=== PATIENT | female | born 1955 | race African-American/Black ===

== ENCOUNTER 2016-10-22 23:00 | Inpatient (IN) | payer SELFPAY ==
[~2016-10-22] VITALS: Ht 170.2 cm; Wt 68.9 kg
[2016-10-22] MEDS ORDERED: ADENOSINE IV SOLN 3 MG/ML 2 ML VIAL ONE (23:03)
[2016-10-22] MEDS ORDERED: ETOMIDATE 20 MG/10 ML VIAL ONE (23:07)
[2016-10-22] MEDS ORDERED: SUCCINYLCHOLINE CHLORIDE 200 MG/10 ML VIAL ONE ×2 (23:13→23:14)
[2016-10-22 23:17] VITALS: O2SAT 100
[2016-10-22 23:21] VITALS: PULSE 200; RESP 35
[2016-10-22] MEDS ORDERED: PROPOFOL 1000 MG/100 ML INJ 100 ML ONE (23:27)
[2016-10-22] MEDS ORDERED: DILTIAZEM HCL 25 MG/5 ML VIAL ONE (23:28)
[2016-10-22] MEDS ORDERED: DILTIAZEM 125 MG/NS 100 ML IV SCH ×2 (23:45)
[2016-10-23] VITALS (24 sets, daily range): BP systolic 87–150; BP diastolic 59–100; PULSE 76–127; RESP 16–28; TEMP 97.8–100.6; O2SAT 94–100
[2016-10-23] MEDS ORDERED: ETOMIDATE 20 MG/10 ML VIAL IV PUSH ONE ×2
[2016-10-23] MEDS ORDERED: ASPIRIN 300 MG SUPP RECTAL ONE
[2016-10-23] MEDS ORDERED: SODIUM CHLORIDE 0.9% FLUSH 10 ML FLUSH IVF PRN
[2016-10-23] MEDS ORDERED: SUCCINYLCHOLINE CHLORIDE 200 MG/10 ML VIAL IV PUSH ONE
[2016-10-23] MEDS ORDERED: DILTIAZEM HCL 25 MG/5 ML VIAL IV ONE
[2016-10-23] MEDS ORDERED: HYDROmorphone HCL PF 1 MG/ML VIAL IV PUSH ONE (00:15)
[2016-10-23 00:26] LABS: BASOPHIL # 0.1 TH/MM3 (0-0.2); BASOPHIL % 0.5 % (0.0-2.0); EOSINOPHIL # 0.2 TH/MM3 (0-0.4); EOSINOPHIL % 1.5 % (0.0-4.0); HEMATOCRIT 43.9 % (35.0-46.0); LYMPH % 37.7 % (9.0-44.0); LYMPHOCYTE # 6.3 TH/MM3 (1.0-4.8); MEAN CELL VOLUME 89.5 FL (80.0-100.0); MEAN CORPUSCULAR HEMOGLOBIN 28.2 PG (27.0-34.0); MEAN CORPUSCULAR HGB CONC 31.5 % (32.0-36.0); MONO % 6.8 % (0.0-8.0); NEUT % 53.5 % (16.0-70.0); PLATELET COUNT 189 TH/MM3 (150-450); WHITE BLOOD COUNT 16.8 TH/MM3 (4.0-11.0)
[2016-10-23] MEDS: DILTIAZEM INJ 125 MG in SODIUM CHLORIDE 0.9% INJ 100 ML IV SCH (00:26)
[2016-10-23 00:35] LABS: HEMO FLAGS AUTO DIFF
[2016-10-23 00:42] LABS: APTT (PATIENT) 22.6 SEC (24.3-30.1); PROTHROMBIN TIME - PATIENT 10.7 SEC (9.8-11.6)
[2016-10-23 00:48] LABS: BLOOD GAS BASE EXCESS -6.7 mmol/L (-2-2); BLOOD GAS CARBOXYHEMOGLOBIN 1.1 % (0-4); BLOOD GAS HCO3 19 mmol/L (22-26); BLOOD GAS METHEMOGLOBIN 0.7 % (0-2); BLOOD GAS O2 HGB SATURATION 93 % (90-100); BLOOD GAS OXYGEN CONTENT 16.4 Vol % (12.0-20.0); BLOOD GAS PCO2 40 mmHg (38-42); BLOOD GAS PO2 82 mmHG (61-120); BLOOD GAS TOTAL HGB 12.5 G/DL (12.0-16.0); CRITICAL VALUE YES; TEMP CORR TO 98.6
[2016-10-23 00:49] LABS: DRAW SITE ALINE; FIO2 60 %; OXYGEN DEVICE VENTILATOR; STAT YES; VENT SETTINGS AC/16/500/PEEP10
[2016-10-23 00:56] LABS: ALT (GPT) 57 U/L (10-53); ANION GAP 19 MEQ/L (5-15); AST (GOT) 40 U/L (15-37); BICARBONATE 17.2 MEQ/L (21.0-32.0); BLOOD UREA NITROGEN 16 MG/DL (7-18); CHLORIDE 112 MEQ/L (98-107); GLOMERULAR FILTRATION RATE 44 ML/MIN (>89); MAGNESIUM 2.2 MG/DL (1.5-2.5); POTASSIUM 3.3 MEQ/L (3.5-5.1); SODIUM (NA) 148 MEQ/L (136-145)
[2016-10-23 01:00] LABS: ALKALINE PHOSPHATASE 160 U/L (45-117); TOTAL BILIRUBIN ADULT 0.3 MG/DL (0.2-1.0)
--- NOTE | 2016-10-23 02:13 | RADRPT ---
EXAM DATE/TIME: 10/23/2016 01:08 [place] COMPARISON: No previous studies available for comparison. INDICATIONS : Post intubation. Cardiac arrest. MEDICAL HISTORY : Emphysema. SURGICAL HISTORY : None. ENCOUNTER: Initial ACUITY: 1 day PAIN SCORE: Non-responsive. LOCATION: Bilateral chest FINDINGS: A single view of the chest demonstrates endotracheal tube tip 6.2 cm above the rasta. Nasogastric tu be with tip below the inferior margin image. Right perihilar/right lower lobe infiltrate. Heart enlar ged.. Osseous structures are intact. CONCLUSION: 1. Right perihilar/right lower lobe infiltrate. 2. Endotracheal tube 6.2 cm above the rasta. Johnie Key MD on October 23, 2016 at 1:34 Board Certified Radiologist. This report was verified electronically.
[2016-10-23 02:36] LABS: BACTERIA, URINE RARE /hpf; BLOOD, URINE MOD (NEG); GLUCOSE,URINE 150 mg/dL (NEG); GRANULAR CAST, URINE 1 /lpf; HYALINE CAST, URINE 9 /lpf (RARE); KETONE, URINE NEG (NEG); NITRITE,URINE NEG (NEG); PH, URINE 6.5 (5.0-8.5); RENAL EPITHELIAL CELLS <1 /hpf; SQUAMOUS EPITHELIAL CELL URINE 1 /hpf (0-5); TRANSITIONAL EPI CELLS, URINE <1 /hpf; URINE COLOR YELLOW (YELLW/STRAW)
[2016-10-23 02:37] LABS: COMMENT (UR) CATH-CULTURE IND; CULTURE IF INDICATED CATH CULTURE IND
[2016-10-23] MEDS ORDERED: CEFEPIME 2000 MG/NS 100 ML IV ONE ×2 (02:45)
[2016-10-23] MEDS ORDERED: VANCOMYCIN 1,000 MG/NS 250 ML IV ONE ×2 (02:45)
[2016-10-23] MEDS ORDERED: AZITHROMYCIN 500 MG/NS 250 ML IV ONE ×2 (02:45)
[2016-10-23] MEDS ORDERED: FUROSEMIDE 40 MG/4 ML VIAL IV PUSH ONE (03:00)
--- NOTE | 2016-10-23 03:21 | PD ---
HPI Chief Complaint: Respiratory Distress Time Seen by Provider: 23:58 Travel History International Travel<30 days: No Contact w/Intl Traveler<30days: No Traveled to known affect area: No History of Present Illness HPI This is a 61-year-old female who presents to the emergency department reporting that she needs help and that she feels like she is going to . She is able to say that she has a history of COPD and that her chest hurts her and she feels short of breath but otherwise she provides very little history. PFSH Past Medical History Medical History: Unable to Obtain ?: Unknown Social History Tobacco Use: Yes Allergies-Medications (Allergen,Severity, Reaction): Coded Allergies: Codeine (Verified Allergy, Unknown, 10/23/16) Doxycycline (Verified Allergy, Unknown, 10/23/16) Morphine (Verified Allergy, Unknown, 10/23/16) Reported Meds & Prescriptions Reported Meds & Active Scripts Active Active Prescriptions or Reported Medications Unobtainable Review of Systems ROS Limitations: Clinical Condition Physical Exam Narrative GENERAL:in extremis, diaphoretic, tripoding SKIN: Diaphoretic HEAD: Atraumatic. Normocephalic. EYES: Pupils equal and round. No injection or drainage. ENT: Moist mucous membranes NECK: Trachea midline. CARDIOVASCULAR: Tachycardic No murmur appreciated. RESPIRATORY: Rales, accessory muscle use, speaking in 2 word sentences GASTROINTESTINAL: Abdomen soft, non-tender, nondistended. MUSCULOSKELETAL: No obvious deformities. NEUROLOGICAL: Awake and alert. No obvious cranial nerve deficits. Moving all extremities. PSYCHIATRIC: Anxious appearing. Data Data Last Documented VS Vital Signs Date Time Temp Pulse Resp B/P Pulse Ox O2 Delivery O2 Flow Rate FiO2 10/23/16 00:58 86 16 116/65 100 Ventilator 60 10/22/16 23:00 2 Orders Adenosine Inj (Adenocard Inj) (10/22/16 23:03) Etomidate Inj (Amidate Inj) (10/22/16 23:07) Succinylcholine Inj (Quelicin Inj) (10/22/16 23:13) Succinylcholine Inj (Quelicin Inj) (10/22/16 23:14) Propofol 1000 Mg/100 Ml Inj (Diprivan 10 (10/22/16 23:27) Diltiazem Inj (Cardizem Inj) (10/22/16 23:28) Diltiazem Inj (Cardizem Inj) (10/22/16 23:45) Electrocardiogram (10/22/16 23:58) Complete Blood Count With Diff (10/22/16 23:58) Comprehensive Metabolic Panel (10/22/16 23:58) Magnesium (Mg) (10/22/16 23:58) Prothrombin Time / Inr (Pt) (10/22/16 23:58) Act Partial Throm Time (Ptt) (10/22/16 23:58) Troponin I (10/22/16 23:58) Chest, Single Ap (10/22/16 23:58) Ecg Monitoring (10/22/16 23:58) Bilateral Bp Monitoring (10/22/16 23:58) Iv Access Insert/Monitor (10/22/16 23:58) Oximetry (10/22/16 23:58) Oxygen Administration (10/22/16 23:58) Sodium Chloride 0.9% Flush (Ns Flush) (10/23/16 00:00) Aspirin Supp (Aspirin Supp) (10/23/16 00:00) Diltiazem Inj (Cardizem Inj) (10/23/16 00:00) Vital Signs (Adult) Q15MX4,Q4H (10/22/16 23:58) Movie Actor / Telemetry ELANA.Q8H (10/22/16 23:58) Cardiac Rhythm ELANA.Q8H (10/22/16 23:58) Notify Dr: Other (10/22/16 23:58) Diltiazem Inj (Cardizem Inj) (10/23/16 00:00) Succinylcholine Inj (Quelicin Inj) (10/23/16 00:00) Etomidate Inj (Amidate Inj) (10/23/16 00:00) Etomidate Inj (Amidate Inj) (10/23/16 00:00) B-Type Natriuretic Peptide (10/22/16 23:58) D-Dimer (10/22/16 23:58) Alcohol (Ethanol) (10/22/16 23:58) Drug Screen, Random Urine (10/22/16 23:58) Hydromorphone Pf Inj (Dilaudid Pf Inj) (10/23/16 00:15) Arterial Blood Gas (Abg) (10/23/16 00:40) Urinalysis - C+S If Indicated (10/23/16 00:57) Blood Culture (10/23/16 00:57) Lactic Acid (10/23/16 00:57) Labs Laboratory Tests Test 10/22/16 10/23/16 10/23/16 10/23/16 23:30 00:40 01:00 01:05 White Blood Count 16.8 TH/MM3 Red Blood Count 4.90 MIL/MM3 Hemoglobin 13.8 GM/DL Hematocrit 43.9 % Mean Corpuscular Volume 89.5 FL Mean Corpuscular Hemoglobin 28.2 PG Mean Corpuscular Hemoglobin 31.5 % Concent Red Cell Distribution Width 13.0 % Platelet Count 189 TH/MM3 Mean Platelet Volume 11.1 FL Neutrophils (%) (Auto) 53.5 % Lymphocytes (%) (Auto) 37.7 % Monocytes (%) (Auto) 6.8 % Eosinophils (%) (Auto) 1.5 % Basophils (%) (Auto) 0.5 % Neutrophils # (Auto) 9.0 TH/MM3 Lymphocytes # (Auto) 6.3 TH/MM3 Monocytes # (Auto) 1.1 TH/MM3 Eosinophils # (Auto) 0.2 TH/MM3 Basophils # (Auto) 0.1 TH/MM3 CBC Comment AUTO DIFF Prothrombin Time 10.7 SEC Prothromb Time International 1.0 RATIO Ratio Activated Partial 22.6 SEC Thromboplast Time D-Dimer Quantitative (PE/DVT) 0.78 MG/L FEU Sodium Level 148 MEQ/L Potassium Level 3.3 MEQ/L Chloride Level 112 MEQ/L Carbon Dioxide Level 17.2 MEQ/L Anion Gap 19 MEQ/L Blood Urea Nitrogen 16 MG/DL Creatinine 1.47 MG/DL Estimat Glomerular Filtration 44 ML/MIN Rate Random Glucose 191 MG/DL Calcium Level 9.5 MG/DL Magnesium Level 2.2 MG/DL Total Bilirubin 0.3 MG/DL Aspartate Amino Transf 40 U/L (AST/SGOT) Alanine Aminotransferase 57 U/L (ALT/SGPT) Alkaline Phosphatase 160 U/L Troponin I 0.03 NG/ML B-Type Natriuretic Peptide 1515 PG/ML Total Protein 7.6 GM/DL Albumin 3.6 GM/DL Ethyl Alcohol Level LESS THAN 3 MG/DL Blood Gas Puncture Site JIMY Blood Gas Patient Temperature 98.6 Blood Gas HCO3 19 mmol/L Blood Gas Base Excess -6.7 mmol/L Blood Gas Oxygen Saturation 93 % Arterial Blood pH 7.29 Arterial Blood Partial 40 mmHg Pressure CO2 Arterial Blood Partial 82 mmHG Pressure O2 Arterial Blood Oxygen Content 16.4 Vol % Arterial Blood 1.1 % Carboxyhemoglobin Arterial Blood Methemoglobin 0.7 % Blood Gas Hemoglobin 12.5 G/DL Oxygen Delivery Device VENTILATOR Blood Gas Ventilator Setting AC/16/500/PEEP10 Blood Gas Inspired Oxygen 60 % Urine Color YELLOW Urine Turbidity HAZY Urine pH 6.5 Urine Specific [place] 1.014 Urine Protein 300 mg/dL Urine Glucose (UA) 150 mg/dL Urine Ketones NEG mg/dL Urine Occult Blood MOD Urine Nitrite NEG Urine Bilirubin NEG Urine Urobilinogen LESS THAN 2.0 MG/DL Urine Leukocyte Esterase MOD Urine RBC 19 /hpf Urine WBC 67 /hpf Urine WBC Clumps MOD Urine Squamous Epithelial 1 /hpf Cells Urine Transitional Epithelial <1 /hpf Cells Urine Renal Epithelial Cells <1 /hpf Urine Bacteria RARE /hpf Urine Hyaline Casts 9 /lpf Urine Granular Casts 1 /lpf Microscopic Urinalysis Comment CATH-CULTURE IND Urine Opiates Screen NEG Urine Barbiturates Screen NEG Urine Amphetamines Screen NEG Urine Benzodiazepines Screen NEG Urine Cocaine Screen POS Urine Cannabinoids Screen NEG Lactic Acid Level 1.9 mmol/L MDM Medical Decision Making Medical Screen Exam Complete: Yes Emergency Medical Condition: Yes Interpretation(s) Temperature is 100.6, tachycardic, hypertensive Leukocytosis Mild hypokalemia Anion gap is 19 Bicarbonate is 17 Creatinine is 1.5 Mild transaminitis BNP is 1500 Chest x-ray: Right lower lobe infiltrate Differential Diagnosis SVT, congestive heart failure, COPD exacerbation, pulmonary embolism, pneumonia , cocaine toxicity Narrative Course This is a 61-year-old female who presents to the emergency department in extremis, tachycardic in the 200s, diaphoretic, short of breath, with audible Rales. She was placed on a monitor and IVs were established. She was found to be in a narrow complex tachycardia. We were unable to obtain a blood pressure and the patient appeared unstable with diaphoresis and shortness of breath. She was given 6 mg of adenosine unsuccessfully. As patient became more unstable , synchronized cardioversion was performed at 100, 150 and 200 J with no success. Patient was placed on BiPAP. Her oxygen saturation continued to decline. Decision was made to intubate the patient. Patient was intubated and placed on propofol. Following intubation, she was found to be markedly hypertensive with a systolic blood pressure in the 200s. She was given 20 mg of IV diltiazem. Her EKG was consistent with atrial flutter. Her 12-lead EKG demonstrates ST elevation of a half a millimeter in V2 and 2 mm in V3. I did speak to Dr. Bennett was on-call for cardiology. We agree this likely does not reflect a STEMI, and her presentation is more consistent with symptomatic arrhythmia. We decided not to take the patient to the [facility] emergently. Patient was started on a diltiazem drip. Labs are obtained which demonstrate a BNP of 1500. She was given 40 mg of IV Lasix. She also had a low-grade fever of 100.6. Cultures were obtained. Chest x-ray demonstrates a possible right lower lobe pneumonia. Patient was placed on broad-spectrum antibiotics. The patient's urine drug screen is positive for cocaine. I suspect that the patient's presentation is related to cocaine toxicity and that she had flash pulmonary edema in the setting of atrial flutter secondary to cocaine intoxication. Critical Care Narrative Aggregate critical care time was 70 minutes. Time to perform other separately billable procedures was not included in the critical care time. My time did not include minutes spent treating any other patients simultaneously or on activities that did not directly contribute to the patient's treatment. The services I provided to this patient were to treat and/or prevent clinically significant deterioration that could result in: Disability, I provided critical care services requiring my management, as noted below: Chart data review, documentation time, medication orders and management, vital sign assessments/reviewing monitor data, ordering and reviewing lab tests, ordering and interpreting/reviewing x-rays and diagnostic studies, care of the patient and discussion of the patient with the admitting physicians. Procedures Procedure Narrative INTUBATION: The patient was put in optimal position for the procedure. Rapid sequence intubation was initiated by me using 10 milligrams of etomidate IV and 100 milligrams of succinylcholine IV. The patient was intubated with a 7.5 cuffed endotracheal tube. Tube placement was confirmed by visualization of the tube and balloon passing through the cords, capnometry and subsequent chest x- ray. Breath sounds were equal and well aerated bilaterally postintubation. No breath sounds over stomach. Patient tolerated procedure well. CARDIOVERSION: A synchronized cardioversion was performed. Patient was cardioverted at 100 J, 150 J and 200 J. Patient remained in narrow complex tachycardia. MODERATE SEDATION: The patient was placed on a nuclear monitoring technician and pulse oximetry. An ambu bag and suction was immediately available at bedside. The patient was monitored by the nurse. Oxygen saturation, heart rate and blood pressure were monitored. Procedural sedation was acheived using 7 mg of etomidate. The patient was observed until awake and alert. Procedural Sedation time in attendance was 20 minutes. Physician Communication Physician Communication Discussed with Dr. Bennett and Dr. Cast Diagnosis Primary Impression: Atrial flutter with rapid ventricular response Additional Impression: Flash pulmonary edema Admitting Information Admitting Physician Requests: Admit Scripts Unable to Obtain Active Prescriptions or Reported Meds Ewa Goff MD October 23, 2016 03:21
[2016-10-23 03:40] LABS: AMPHETAMINE, URINE NEG (NEG); BARBITURATES, URINE NEG (NEG); COCAINE, URINE POS (NEG)
[2016-10-23] MEDS ORDERED: RESP: ALBUTEROL 2.5 MG/IPRATROPIUM 0.5 MG NEB (PRN) INH (03:45)
[2016-10-23] MEDS ORDERED: PIPERACIL-TAZO 4.5 GM PREMIX 100 ML IV SCH (03:45)
[2016-10-23] MEDS ORDERED: ONDANSETRON HCL 4 MG/2 ML VIAL IV PRN (03:45)
[2016-10-23] MEDS ORDERED: SODIUM CHLORIDE 0.9% FLUSH 10 ML FLUSH PRN (03:45)
[2016-10-23] MEDS ORDERED: Vancomycin Consult Pharmacy 1 EA OTHER SCH (03:45)
[2016-10-23] MEDS ORDERED: CHLORHEXIDINE GLUCONATE 2 % 1 PACK (2 CLOTHS) TOP PRN (03:45)
[2016-10-23] MEDS ORDERED: MORPHINE SULFATE 4 MG/ML INJ IV PRN (03:45)
[2016-10-23] MEDS ORDERED: MISCELLANEOUS NURSING INFORMATION XX SCH (03:45)
[2016-10-23] MEDS ORDERED: ACETAMINOPHEN 325 MG TAB PO PRN (03:45)
[2016-10-23] MEDS ORDERED: MIDAZOLAM HCL 2 MG/2 ML VIAL IV PRN (03:45)
[2016-10-23] MEDS ORDERED: VANCOMYCIN INJ 1,000 MG in SODIUM CHLOR 0.9% 250 ML INJ 250 ML IV SCH (03:45)
[2016-10-23] MEDS ORDERED: METOCLOPRAMIDE HCL 10 MG/2 ML VIAL IV PRN (03:45)
--- NOTE | 2016-10-23 03:46 | HHI.HP ---
HPI Service Critical Care Medicine Primary Care Physician Unknown Admission Diagnosis Diagnosis: Travel History International Travel<30 Days: No Contact w/Intl Traveler <30 Da: No Traveled to Known Affected Are: No History of Present Illness 61-year-old female who presents to the emergency department reporting that she needs help and that she feels like she is going to . In the emergency department she was found to be in rapid A. fib/flutter with RVR. She was in respiratory distress hypoxic and borderline hypotensive. There were 3 attempts of electric cardioversion, however unsuccessful. Patient was intubated for an airway protection as well as hypoxemia, with improvement of vital signs look pressure as well as a heart rate. Due to improvement all of her hemodynamics she was started on diltiazem drip that well-controlled her heart rate now. Review of Systems ROS Unable to obtain patient is sedated and intubated Past Family Social History Allergies: Coded Allergies: Codeine (Verified Allergy, Unknown, 10/23/16) Doxycycline (Verified Allergy, Unknown, 10/23/16) Morphine (Verified Allergy, Unknown, 10/23/16) Past Medical History Unobtainable Past Surgical History Unobtainable Reported Medications Reported Meds & Active Scripts Active Active Prescriptions or Reported Medications Unobtainable Active Ordered Medications Current Medications Medications (Trade) Dose Ordered Sig/Cassie Route PRN Reason Start Time Stop Time Status Last Admin Dose Admin Sodium Chloride 2 ml 2 ml UNSCH PRN IVF FLUSH AFTER USING IV ACCESS 10/23/16 00:00 Diltiazem HCl 125 mg/Sodium Chloride 125 ml @ 0 mls/hr TITRATE IV 10/23/16 00:00 10/23/16 00:26 Vancomycin HCl 1000 mg/Sodium Chloride 250 ml @ 250 mls/hr ONCE ONCE IV 10/23/16 02:45 10/23/16 03:44 10/23/16 03:13 Azithromycin 500 mg/Sodium Chloride 250 ml @ 250 mls/hr ONCE ONCE IV 10/23/16 02:45 10/23/16 03:44 Sodium Chloride (NS 1000 ml Inj) 1,000 ml @ 84 mls/hr [id number] IV 10/23/16 03:32 UNV Sodium Chloride (NS Flush) 2 ml UNSCH PRN .XX FLUSH AFTER USING IV ACCESS 10/23/16 03:45 UNV Sodium Chloride (NS Flush) 2 ml BID .XX 10/23/16 09:00 UNV Acetaminophen (Tylenol) 650 mg Q6H PRN PO PAIN 1-10 AND/OR FEVER >101F 10/23/16 03:45 UNV Morphine Sulfate (Morphine Inj) 2 mg Q2H PRN IV PAIN SCALE 6 TO 10 10/23/16 03:45 UNV Famotidine (Pepcid Inj) 20 mg Q12HR IV PUSH 10/23/16 09:00 UNV Midazolam HCl (Versed Inj) 2 mg Q1H PRN IV SEDATION 10/23/16 03:45 UNV Artificial Tears (Tears Naturale Opth Soln) 1 drop TID EACH EYE 10/23/16 09:00 UNV Ondansetron HCl (Zofran Inj) 4 mg Q6H PRN IV NAUSEA OR VOMITING 10/23/16 03:45 UNV Metoclopramide HCl (Reglan Inj) 10 mg Q6H PRN IV NAUSEA OR VOMITING 10/23/16 03:45 UNV Docusate Sodium (Colace Liq) 100 mg Q12H G-TUBE 10/23/16 03:45 UNV Enoxaparin Sodium (Lovenox Inj) 40 mg Q24H SQ 10/23/16 03:45 UNV Miscellaneous Information 1 [id number] XX 10/23/16 03:45 UNV Chlorhexidine Gluconate (Chlorhexidine 2% Cloth) 3 pack Taper DAILY@04 TOP 10/23/16 04:00 10/19/17 03:59 UNV Chlorhexidine Gluconate 3 pack 3 pack UNSCH PRN [facility] 10/23/16 03:45 UNV Piperacillin Sod/ Tazobactam Sod 100 ml @ 200 mls/hr Q6H IV 10/23/16 03:45 UNV Azithromycin 500 mg/Sodium Chloride 250 ml @ 250 mls/hr Q24H IV 10/23/16 03:45 UNV Vancomycin HCl 1000 mg/Sodium Chloride 250 ml @ 250 mls/hr Q12H IV 10/23/16 03:45 UNV Pharmacy Profile Note (Vancomycin Consult Pharmacy) 0 ml @ 0 mls/hr UNSCH XX 10/23/16 03:45 UNV Methylprednisolone Sodium Succinate (SoluMEDROL INJ) 40 mg Q12H IV 10/23/16 03:45 UNV Family History Unobtainable Social History Unobtainable. However there is some remote history of positive cocaine drug screen test Physical Exam Vital Signs Vital Signs Date Time Temp Pulse Resp B/P Pulse Ox O2 Delivery O2 Flow Rate FiO2 10/23/16 03:06 100.6 76 18 102/64 100 Ventilator 60 10/23/16 00:58 86 16 116/65 100 Ventilator 60 10/23/16 00:38 80 113/63 10/23/16 00:33 100 Ventilator 60 10/23/16 00:33 81 16 95/69 94 60 10/23/16 00:28 77 16 87/59 100 Ventilator 100 10/23/16 00:28 77 16 95/63 100 Ventilator 60 10/23/16 00:13 117 16 136/95 100 Ventilator 100 10/23/16 00:11 127 16 150/100 100 Ventilator 100 10/22/16 23:21 200 35 10/22/16 23:17 100 60 10/22/16 23:00 35 Nasal Cannula 2 Physical Exam GENERAL: Well-nourished, well-developed patient. Sedated and intubated SKIN: Warm and dry. HEAD: Normocephalic. EYES: No scleral icterus. No injection or drainage. NECK: Supple, trachea midline. No JVD or lymphadenopathy. CARDIOVASCULAR: Regular rate and rhythm without murmurs, gallops, or rubs. RESPIRATORY: Breath sounds equal bilaterally. No accessory muscle use. GASTROINTESTINAL: Abdomen soft, non-tender, nondistended. MUSCULOSKELETAL: No cyanosis, or edema. BACK: Nontender without obvious deformity. No CVA tenderness. EXTREMITIES: No clubbing cyanosis or edema Laboratory Laboratory Tests Test 10/22/16 10/23/16 10/23/16 10/23/16 23:30 00:40 01:00 01:05 White Blood Count 16.8 Red Blood Count 4.90 Hemoglobin 13.8 Hematocrit 43.9 Mean Corpuscular Volume 89.5 Mean Corpuscular Hemoglobin 28.2 Mean Corpuscular Hemoglobin 31.5 Concent Red Cell Distribution Width 13.0 Platelet Count 189 Mean Platelet Volume 11.1 Neutrophils (%) (Auto) 53.5 Lymphocytes (%) (Auto) 37.7 Monocytes (%) (Auto) 6.8 Eosinophils (%) (Auto) 1.5 Basophils (%) (Auto) 0.5 Neutrophils # (Auto) 9.0 Lymphocytes # (Auto) 6.3 Monocytes # (Auto) 1.1 Eosinophils # (Auto) 0.2 Basophils # (Auto) 0.1 CBC Comment AUTO DIFF Prothrombin Time 10.7 Prothromb Time International 1.0 Ratio Activated Partial 22.6 Thromboplast Time D-Dimer Quantitative (PE/DVT) 0.78 Sodium Level 148 Potassium Level 3.3 Chloride Level 112 Carbon Dioxide Level 17.2 Anion Gap 19 Blood Urea Nitrogen 16 Creatinine 1.47 Estimat Glomerular Filtration 44 Rate Random Glucose 191 Calcium Level 9.5 Magnesium Level 2.2 Total Bilirubin 0.3 Aspartate Amino Transf 40 (AST/SGOT) Alanine Aminotransferase 57 (ALT/SGPT) Alkaline Phosphatase 160 Troponin I 0.03 B-Type Natriuretic Peptide 1515 Total Protein 7.6 Albumin 3.6 Ethyl Alcohol Level LESS THAN 3 Blood Gas Puncture Site JIMY Blood Gas Patient Temperature 98.6 Blood Gas HCO3 19 Blood Gas Base Excess -6.7 Blood Gas Oxygen Saturation 93 Arterial Blood pH 7.29 Arterial Blood Partial 40 Pressure CO2 Arterial Blood Partial 82 Pressure O2 Arterial Blood Oxygen Content 16.4 Arterial Blood 1.1 Carboxyhemoglobin Arterial Blood Methemoglobin 0.7 Blood Gas Hemoglobin 12.5 Oxygen Delivery Device VENTILATOR Blood Gas Ventilator Setting AC/16/500/PEEP10 Blood Gas Inspired Oxygen 60 Urine Color YELLOW Urine Turbidity HAZY Urine pH 6.5 Urine Specific [place] 1.014 Urine Protein 300 Urine Glucose (UA) 150 Urine Ketones NEG Urine Occult Blood MOD Urine Nitrite NEG Urine Bilirubin NEG Urine Urobilinogen LESS THAN 2.0 Urine Leukocyte Esterase MOD Urine RBC 19 Urine WBC 67 Urine WBC Clumps MOD Urine Squamous Epithelial 1 Cells Urine Transitional Epithelial <1 Cells Urine Renal Epithelial Cells <1 Urine Bacteria RARE Urine Hyaline Casts 9 Urine Granular Casts 1 Microscopic Urinalysis Comment CATH-CULTURE IND Lactic Acid Level 1.9 Date/Time Procedure Status Source Growth 10/23/16 01:05 Aerobic Blood Culture Received Blood Peripheral Pending 10/23/16 01:05 Anaerobic Blood Culture Received Blood Peripheral Pending 10/23/16 01:00 Urine Culture Received Urine Catheterized Urine Pending Result Diagram: 10/22/16 2330 10/22/16 2330 Assessment and Plan Discussed Condition With Respiratory failure - Intubated for airway protection - Fluid overload - Probably due to cocaine toxicity - Mechanical ventilation - Repeat CXR a.m. - Follow-up ABG Tachycardia - Improving with Cardizem drip - Avoid beta bertha due to recent cocaine use Cocaine toxicity - With agitation -Benzodiazepines when necessary DVT GI prophylaxis - Subcutaneous heparin and Pepcid Critical Care: The total critical care time was 35 minutes. Time to perform other separately billable procedures was not included in the critical care time. Buck Cast MD October 23, 2016 03:46
[2016-10-23] MEDS ORDERED: PROPOFOL 1000 MG/100 ML INJ 100 ML ONE (04:01)
[2016-10-23 04:10] LABS: BANDS 1 % (0-6); EOSINOPHILS 2 % (0-4); NEUTROPHIL # MANUAL DIFF 8.9 TH/MM3 (1.8-7.7); POLYS (SEG NEUTROPHILS) 52 % (16-70); SCAN/DIFF FINAL DIFF MANUAL; WBC DIFF SAMPLE 100
[2016-10-23 04:12] LABS: PLATELET ESTIMATE SMEAR LOW (NORMAL); PLATELET MORPHOLOGY ENLARGED (NORMAL)
[2016-10-23] MEDS: SODIUM CHLOR 0.9% 1000 ML INJ 1,000 ML IV SCH ×2 (04:12→15:27)
[2016-10-23 04:13] LABS: BURR CELLS 1+ (NORMAL)
[2016-10-23] MEDS: PROPOFOL 1000 MG/100 ML INJ 100 ML IV SCH ×3 (04:14→13:57)
[2016-10-23] MEDS: methylPREDNISolone SOD SUCC 40 MG/1 ML VIAL IV SCH ×2 (04:14→15:26)
[2016-10-23] MEDS: RESP: ALBUTEROL 2.5 MG/IPRATROPIUM 0.5 MG NEB (SCH) INH ×4 (04:30→22:13)
[2016-10-23 04:47] LABS: BLOOD GAS HCO3 19 mmol/L (22-26); BLOOD GAS METHEMOGLOBIN 0.5 % (0-2); BLOOD GAS O2 HGB SATURATION 97 % (90-100); BLOOD GAS OXYGEN CONTENT 16.5 Vol % (12.0-20.0); BLOOD GAS PCO2 35 mmHg (38-42); BLOOD GAS PO2 128 mmHG (61-120); BLOOD GAS TOTAL HGB 11.9 G/DL (12.0-16.0); CRITICAL VALUE NO; OXYGEN DEVICE VENTILATOR; TEMP CORR TO 98.6
[2016-10-23 04:48] LABS: DRAW SITE ALINE; FIO2 50 %; STAT NO; VENT SETTINGS AC/16/500/PEEP10
[2016-10-23] MEDS: PIPERACIL-TAZO 3.375 GM PREMIX 50 ML IV SCH ×4 (05:22→20:21)
[2016-10-23] MEDS: CHLORHEXIDINE GLUCONATE 2 % 1 PACK (2 CLOTHS) TOP SCH (06:30)
[2016-10-23] MEDS: ARTIFICIAL TEARS OPTH SOLN 15 ML BTL EACH EYE SCH ×3 (08:18→17:59)
[2016-10-23] MEDS: SODIUM CHLORIDE 0.9% FLUSH 10 ML FLUSH SCH ×2 (08:18→20:21)
[2016-10-23] MEDS: ENOXAPARIN SODIUM 40 MG/0.4 ML SYRINGE SQ SCH (08:18)
[2016-10-23] MEDS: FAMOTIDINE 20 MG/2 ML VIAL IV PUSH SCH ×2 (08:18→20:21)
[2016-10-23] MEDS: DOCUSATE SODIUM 100 MG/10 ML UDC G-TUBE SCH ×2 (08:18→20:21)
--- NOTE | 2016-10-23 10:37 | EKG ---
Date Performed: 10/23/2016 Time Performed: 00:04:44 PTAGE: 61 years EKG: ATRIAL Flutter WITH RAPID VENTRICULAR RESPONSE ANTEROSEPTAL MYOCARDIAL INFARCTION NO PREVIOUS TRACING DOCTOR: Rome Cochran Interpretating Date/Time 10/23/2016 10:35:41
[2016-10-23] MEDS ORDERED: SODIUM PHOSPHATE INJ 30 MMOL in SODIUM CHLOR 0.9% 250 ML INJ 240 ML IV PRN (15:30)
[2016-10-23] MEDS ORDERED: POTASSIUM PHOSPHATE MONOBASIC 500 MG TAB PO PRN (15:30)
[2016-10-23] MEDS ORDERED: MAGNESIUM SULFATE INJ 4 GM in SODIUM CHLORIDE 0.9% INJ 92 ML IV PRN (15:30)
[2016-10-23] MEDS ORDERED: POTASSIUM CHLOR 20 MEQ PREMIX 100 ML IV PRN ×2 (15:30)
[2016-10-23] MEDS ORDERED: POTASSIUM PHOSPHATE MONOBASIC 500 MG TAB PO/TUBE PRN (15:30)
[2016-10-23] MEDS ORDERED: MAGNESIUM OXIDE 400 MG TAB PO PRN (15:30)
[2016-10-23] MEDS ORDERED: MAGNESIUM SULFATE INJ 2 GM in SODIUM CHLORIDE 0.9% INJ 96 ML IV PRN (15:30)
[2016-10-23] MEDS ORDERED: POTASSIUM CHLOR 40 MEQ PREMIX 100 ML IV PRN ×2 (15:30)
[2016-10-23] MEDS ORDERED: POTASSIUM CHLORIDE 25 MEQ EFFERVESCENT TAB PO PRN (15:30)
--- NOTE | 2016-10-23 15:58 | HHI.CCPN ---
Subjective Remarks/Hospital Course 61-year-old female who presents to the emergency department reporting that she needs help and that she feels like she is going to . In the emergency department she was found to be in rapid A. fib/flutter with RVR. She was in respiratory distress hypoxic and borderline hypotensive. There were 3 attempts of electric cardioversion, however unsuccessful. Patient was intubated for an airway protection as well as hypoxemia, with improvement of vital signs look pressure as well as a heart rate. Due to improvement all of her hemodynamics she was started on diltiazem drip that well-controlled her heart rate now. 10/23: Extubated at 1530 today, controls airway. No chest pain. Anticipate enzyme spill cocaine toxicity last night. Exaggerated atrial arrhythmia; rate controlled, Objective Vital Signs Date Time Temp Pulse Resp B/P Pulse Ox O2 Delivery O2 Flow Rate FiO2 10/23/16 15:47 98 Nasal Cannula 4 10/23/16 14:24 10/23/16 12:00 40 Result Diagram: 10/22/16 2330 10/22/16 2330 Other Results Microbiology Date/Time Procedure Status Source Growth 10/23/16 01:00 Legionella Antigen - Final Complete Urine Catheterized Urine PRESUMPTIVE NEGATIVE FOR LEGIONELLA P... 10/23/16 01:00 Streptococcus pneumoniae Antigen (M - Final Complete Urine Catheterized Urine PRESUMPTIVE NEGATIVE FOR STREPTOCOCCU... Laboratory Tests Test 10/23/16 10/23/16 00:40 04:34 Blood Gas Puncture Site JIMY AHN Blood Gas Patient Temperature 98.6 98.6 Blood Gas HCO3 19 mmol/L 19 mmol/L (22-26) (22-26) Blood Gas Base Excess -6.7 mmol/L -6.0 mmol/L (-2-2) (-2-2) Blood Gas Oxygen Saturation 93 % (90-100) 97 % (90-100) Arterial Blood pH 7.29 7.34 (7.380-7.420) (7.380-7.420) Arterial Blood Partial 40 mmHg (38-42) 35 mmHg (38-42) Pressure CO2 Arterial Blood Partial 82 mmHG 128 mmHG Pressure O2 (61-120) (61-120) Arterial Blood Oxygen Content 16.4 Vol % 16.5 Vol % (12.0-20.0) (12.0-20.0) Arterial Blood 1.1 % (0-4) 1.0 % (0-4) Carboxyhemoglobin Arterial Blood Methemoglobin 0.7 % (0-2) 0.5 % (0-2) Blood Gas Hemoglobin 12.5 G/DL 11.9 G/DL (12.0-16.0) (12.0-16.0) Oxygen Delivery Device VENTILATOR VENTILATOR Blood Gas Ventilator Setting AC/16/500/PEEP10 AC/16/500/PEEP10 Blood Gas Inspired Oxygen 60 % 50 % Objective Remarks SKIN: Warm and dry. HEAD: Normocephalic. EYES: No scleral icterus. No injection or drainage. NECK: Supple, trachea midline. CARDIOVASCULAR: Regular rate and rhythm without murmurs, gallops, or rubs. No JVD. RESPIRATORY: Breath sounds equal bilaterally. No accessory muscle use. GASTROINTESTINAL: Abdomen soft, non-tender, nondistended. BS active. MUSCULOSKELETAL: No cyanosis, or edema. BACK: Nontender without obvious deformity. No CVA tenderness. EXTREMITIES: No clubbing cyanosis or edema, well perfused. NEURO: Conversant, moves 4 limbs with purpose. A/P Assessment and Plan Assessment: 1. Respiratory failure, hypoxemic (J96.01) 2. Supraventricular Tachycardia. 3. Circulatory shock. Plan: 1. Extubate. 2. D/C cardizem. 3. Swallow eval. 4. Check Mag, phos, K. 5. Cardiac ECHO. 6. Protonix. 7. SCDs Overall impression: Arrived in heart failure from cocaine toxicity, progressed to respiratory failure. Required mechanical ventilation. EKG with a-flutter and possible anterior wall injury pattern. No enzyme spill but BNP quite elevated. Will follow EKGs and echo. Jovanny Mcdonald MD October 23, 2016 15:58
--- NOTE | 2016-10-23 16:21 | PD.CONS ---
[facility] By Reason for Consult Cocaine Overdose A-flutter Flash pulmonary edema Primary Care Physician Unknown Diagnoses: (1) Atrial flutter with rapid ventricular response (2) Flash pulmonary edema (3) Cocaine abuse History of Present Illness Mrs. Hernández is a 61 year old female. She came in in respiratory failure and hypotension with heart rates over 200 from A-flutter and RVR. She was cocaine positive. She was intubated and her cardiac arrhythmia was treated. Through time she has improved with normalization of her A-flutter RVR. Blood pressures have also improved. She is extubated today. History could not be obtained previously due to her condition. We discussed her cocaine use and she denies that she had used any within 4 days of her onset of respiratory failure. 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 Other medical conditions are HTN and COPD. She admits to cocaine use intermittantly and also reports occasional smoking. She has used alcohol in the past and denies that this is a regular habit for her other than having some alcohol the evening of admit. No other complaints. Review of Systems Constitutional: DENIES: Fever, Chills Eyes: DENIES: Blurred vision, Diplopia Ears, nose, mouth, throat: DENIES: Hearing loss, Vertigo Respiratory: COMPLAINS OF: Cough, Shortness of breath, DENIES: Wheezing Cardiovascular: DENIES: Chest pain, Palpitations, Syncope Gastrointestinal: DENIES: Abdominal pain, Black stools Musculoskeletal: DENIES: Joint pain Integumentary: DENIES: Abnormal pigmentation Hematologic/lymphatic: DENIES: Bruising Immunologic/allergic: DENIES: Eczema Neurologic: DENIES: Headache, Paresthesias, Seizures Psychiatric: COMPLAINS OF: Anxiety, DENIES: Confusion Past Family Social History Allergies: Coded Allergies: Codeine (Verified Allergy, Unknown, 10/23/16) Doxycycline (Verified Allergy, Unknown, 10/23/16) Morphine (Verified Allergy, Unknown, 10/23/16) Past Medical History COPD HTN Transient heart disease related to (type not specified) Past Surgical History None reported Reported Medications Reported Meds & Active Scripts Active Active Prescriptions or Reported Medications Unobtainable Active Ordered Medications Administered Medications Medications (Trade) Dose Ordered Sig/Cassie Route PRN Reason Start Time Stop Time Status Last Admin Dose Admin Diltiazem HCl 125 mg/Sodium Chloride 125 ml @ 0 mls/hr TITRATE IV 10/23/16 00:00 10/23/16 00:26 Sodium Chloride (NS 1000 ml Inj) 1,000 ml @ 84 mls/hr [id number] IV 10/23/16 03:32 10/23/16 04:12 Sodium Chloride (NS Flush) 2 ml BID .XX 10/23/16 09:00 10/23/16 08:18 Famotidine (Pepcid Inj) 10 mg Q12HR IV PUSH 10/23/16 09:00 10/23/16 08:18 Artificial Tears (Tears Naturale Opth Soln) 1 drop TID EACH EYE 10/23/16 09:00 10/23/16 13:00 Docusate Sodium (Colace Liq) 100 mg Q12H G-TUBE 10/23/16 09:00 10/23/16 08:18 Enoxaparin Sodium (Lovenox Inj) 40 mg Q24H SQ 10/23/16 06:00 10/23/16 08:18 Miscellaneous Information 1 [id number] XX 10/23/16 03:45 10/23/16 06:30 Chlorhexidine Gluconate (Chlorhexidine 2% Cloth) 3 pack Taper DAILY@04 TOP 10/23/16 04:00 10/19/17 03:59 10/23/16 06:30 Methylprednisolone Sodium Succinate 40 mg 40 mg Q12H IV 10/23/16 04:00 10/23/16 15:26 Propofol 100 ml @ 0 mls/hr TITRATE IV 10/23/16 04:15 10/23/16 13:57 Piperacillin Sod/ Tazobactam Sod (Zosyn 3.375 Gm Premix) 50 ml @ 100 mls/hr Q6H IV 10/23/16 04:00 10/23/16 15:26 Family History DM2 in numerous family members HTN in some family members Social History Occasional Smoking Occasional Alcohol use Cocaine abuse intermittently Physical Exam Vital Signs Vital Signs Date Time Temp Pulse Resp B/P Pulse Ox O2 Delivery O2 Flow Rate FiO2 10/23/16 15:47 98 Nasal Cannula 4 10/23/16 15:47 98 Nasal Cannula 4.00 10/23/16 14:24 10/23/16 14:00 79 10/23/16 12:00 100 40 10/23/16 12:00 98.9 79 19 128/68 100 10/23/16 12:00 40 10/23/16 12:00 79 10/23/16 10:00 97 10/23/16 08:12 100 40 10/23/16 08:00 95 10/23/16 08:00 40 10/23/16 08:00 99.7 100 21 143/93 100 10/23/16 06:30 104 10/23/16 06:30 99.7 104 19 125/66 100 118/79 10/23/16 06:16 98 45 10/23/16 05:11 100.0 100 16 129/81 97 Ventilator 60 10/23/16 04:31 100 50 10/23/16 04:09 100.0 92 18 125/83 100 Ventilator 60 10/23/16 03:06 100.6 76 18 102/64 100 Ventilator 60 10/23/16 00:58 86 16 116/65 100 Ventilator 60 10/23/16 00:38 80 113/63 10/23/16 00:33 100 Ventilator 60 10/23/16 00:33 81 16 95/69 94 60 10/23/16 00:28 77 16 87/59 100 Ventilator 100 10/23/16 00:28 77 16 95/63 100 Ventilator 60 10/23/16 00:13 117 16 136/95 100 Ventilator 100 10/23/16 00:11 127 16 150/100 100 Ventilator 100 10/22/16 23:21 200 35 10/22/16 23:17 100 60 10/22/16 23:00 35 Nasal Cannula 2 Physical Exam GENERAL: NAD, A&Ox3 SKIN: Warm and dry. HEAD: Normocephalic. EYES: No scleral icterus. No injection or drainage. NECK: Supple, trachea midline. No JVD or lymphadenopathy. CARDIOVASCULAR: Regular rate and rhythm without murmurs, gallops, or rubs. RESPIRATORY: Breath sounds equal bilaterally. No accessory muscle use. GASTROINTESTINAL: Abdomen soft, non-tender, nondistended. MUSCULOSKELETAL: No cyanosis, or edema. BACK: Nontender without obvious deformity. No CVA tenderness. Laboratory Laboratory Tests Test 10/22/16 10/23/16 10/23/16 10/23/16 23:30 00:40 01:00 01:05 White Blood Count 16.8 Red Blood Count 4.90 Hemoglobin 13.8 Hematocrit 43.9 Mean Corpuscular Volume 89.5 Mean Corpuscular Hemoglobin 28.2 Mean Corpuscular Hemoglobin 31.5 Concent Red Cell Distribution Width 13.0 Platelet Count 189 Mean Platelet Volume 11.1 Neutrophils (%) (Auto) 53.5 Lymphocytes (%) (Auto) 37.7 Monocytes (%) (Auto) 6.8 Eosinophils (%) (Auto) 1.5 Basophils (%) (Auto) 0.5 Neutrophils # (Auto) 9.0 Lymphocytes # (Auto) 6.3 Monocytes # (Auto) 1.1 Eosinophils # (Auto) 0.2 Basophils # (Auto) 0.1 CBC Comment AUTO DIFF Differential Total Cells 100 Counted Neutrophils % (Manual) 52 Band Neutrophils % 1 Lymphocytes % 43 Monocytes % 2 Eosinophils % 2 Neutrophils # (Manual) 8.9 Differential Comment FINAL DIFF MANUAL Atypical Lymphocytes Platelet Estimate LOW Platelet Morphology Comment ENLARGED [place] Cells 1+ Prothrombin Time 10.7 Prothromb Time International 1.0 Ratio Activated Partial 22.6 Thromboplast Time D-Dimer Quantitative (PE/DVT) 0.78 Sodium Level 148 Potassium Level 3.3 Chloride Level 112 Carbon Dioxide Level 17.2 Anion Gap 19 Blood Urea Nitrogen 16 Creatinine 1.47 Estimat Glomerular Filtration 44 Rate Random Glucose 191 Calcium Level 9.5 Magnesium Level 2.2 Total Bilirubin 0.3 Aspartate Amino Transf 40 (AST/SGOT) Alanine Aminotransferase 57 (ALT/SGPT) Alkaline Phosphatase 160 Total Creatine Kinase 93 Troponin I 0.03 B-Type Natriuretic Peptide 1515 Total Protein 7.6 Albumin 3.6 Ethyl Alcohol Level LESS THAN 3 Blood Gas Puncture Site JIMY Blood Gas Patient Temperature 98.6 Blood Gas HCO3 19 Blood Gas Base Excess -6.7 Blood Gas Oxygen Saturation 93 Arterial Blood pH 7.29 Arterial Blood Partial 40 Pressure CO2 Arterial Blood Partial 82 Pressure O2 Arterial Blood Oxygen Content 16.4 Arterial Blood 1.1 Carboxyhemoglobin Arterial Blood Methemoglobin 0.7 Blood Gas Hemoglobin 12.5 Oxygen Delivery Device VENTILATOR Blood Gas Ventilator Setting AC/16/500/PEEP10 Blood Gas Inspired Oxygen 60 Urine Color YELLOW Urine Turbidity HAZY Urine pH 6.5 Urine Specific [place] 1.014 Urine Protein 300 Urine Glucose (UA) 150 Urine Ketones NEG Urine Occult Blood MOD Urine Nitrite NEG Urine Bilirubin NEG Urine Urobilinogen LESS THAN 2.0 Urine Leukocyte Esterase MOD Urine RBC 19 Urine WBC 67 Urine WBC Clumps MOD Urine Squamous Epithelial 1 Cells Urine Transitional Epithelial <1 Cells Urine Renal Epithelial Cells <1 Urine Bacteria RARE Urine Hyaline Casts 9 Urine Granular Casts 1 Microscopic Urinalysis Comment CATH-CULTURE IND Urine Opiates Screen NEG Urine Barbiturates Screen NEG Urine Amphetamines Screen NEG Urine Benzodiazepines Screen NEG Urine Cocaine Screen POS Urine Cannabinoids Screen NEG Lactic Acid Level 1.9 Test 10/23/16 10/23/16 04:34 06:45 Blood Gas Puncture Site JIMY Blood Gas Patient Temperature 98.6 Blood Gas HCO3 19 Blood Gas Base Excess -6.0 Blood Gas Oxygen Saturation 97 Arterial Blood pH 7.34 Arterial Blood Partial 35 Pressure CO2 Arterial Blood Partial 128 Pressure O2 Arterial Blood Oxygen Content 16.5 Arterial Blood 1.0 Carboxyhemoglobin Arterial Blood Methemoglobin 0.5 Blood Gas Hemoglobin 11.9 Oxygen Delivery Device VENTILATOR Blood Gas Ventilator Setting AC/16/500/PEEP10 Blood Gas Inspired Oxygen 50 Nasal Screen MRSA (PCR) MRSA NOT DETECTED Date/Time Procedure Status Source Growth 10/23/16 04:57 Gram Stain - Final Resulted Sputum Endotracheal 10/23/16 04:57 Sputum Culture Resulted Sputum Endotracheal Pending 10/23/16 01:05 Aerobic Blood Culture Received Blood Peripheral Pending 10/23/16 01:05 Anaerobic Blood Culture Received Blood Peripheral Pending 10/23/16 01:00 Urine Culture Received Urine Catheterized Urine Pending 10/23/16 01:00 Legionella Antigen - Final Complete Urine Catheterized Urine PRESUMPTIVE NEGATIVE FOR LEGIONELLA P... 10/23/16 01:00 Streptococcus pneumoniae Antigen (M - Final Complete Urine Catheterized Urine PRESUMPTIVE NEGATIVE FOR STREPTOCOCCU... Result Diagram: 10/22/16 2330 10/22/16 2330 Imaging Last Impressions Chest X-Ray 10/22/16 7026 Signed Impressions: Service Date/Time: Sunday, October 23, 2016 01:08 - CONCLUSION: 1. Right perihilar/right lower lobe infiltrate. 2. Endotracheal tube 6.2 cm above the rasta. Johnie Key MD Assessment and Plan Problem List: (1) Flash pulmonary edema ICD Code: J81.0 Status: Acute (2) Atrial flutter with rapid ventricular response ICD Code: I48.92 Status: Acute (3) Cocaine abuse ICD Code: F14.10 Status: Acute Assessment and Plan Assesment and Plan 61 year old female status post flash pulmonary edema and respiratory failure from A-fib RVR with possible cocaine trigger A-flutter RVR Resolved Follow in ICU overnight If stable overnight, consider transfer to med/surg Echo pending Flash Pulmonary Edema Secondary to A-flutter RVR Resolved Cocaine Abuse Counseled to quit She avoids that idea by reassuring herself/myself that the cocaine might not have caused it, but she swears not to do it again COPD PRN Albuterol Follow clinically Chronic cough from COPD HTN Follow BP Stable with last vitals Tolu England MD October 23, 2016 4:20 pm
[2016-10-23] MEDS ORDERED: METOPROLOL TARTRATE 5 MG/5 ML VIAL IV PUSH ONE (17:00)
[2016-10-23] MEDS ORDERED: LORazepam 2 MG/ML VIAL ONE ×2 (17:36→23:06)
[2016-10-23] MEDS: METOPROLOL TARTRATE 50 MG TAB PO SCH (20:21)
[2016-10-23] MEDS ORDERED: METOPROLOL TARTRATE 25 MG TAB PO SCH (21:00)
[2016-10-23 21:10] LABS: POTASSIUM 3.1 MEQ/L (3.5-5.1)
[2016-10-23] MEDS: LORazepam 2 MG/ML VIAL IV PRN (23:16)
[2016-10-24] VITALS (14 sets, daily range): BP systolic 121–150; BP diastolic 55–90; PULSE 67–128; RESP 19–24; TEMP 98–98.8; O2SAT 95–100
[2016-10-24] MEDS: DILTIAZEM INJ 125 MG in SODIUM CHLORIDE 0.9% INJ 100 ML IV SCH ×2 (00:04→12:04)
[2016-10-24] MEDS ORDERED: AZITHROMYCIN INJ 500 MG in SODIUM CHLOR 0.9% 250 ML INJ 250 ML IV SCH (03:00)
[2016-10-24] MEDS: VANCOMYCIN 1,000 MG/NS 250 ML IV SCH ×2 (03:19)
[2016-10-24] MEDS: SODIUM CHLOR 0.9% 1000 ML INJ 1,000 ML IV SCH ×2 (03:22→15:17)
[2016-10-24] MEDS: RESP: ALBUTEROL 2.5 MG/IPRATROPIUM 0.5 MG NEB (SCH) INH ×4 (03:46→21:12)
[2016-10-24] MEDS: CHLORHEXIDINE GLUCONATE 2 % 1 PACK (2 CLOTHS) TOP SCH (04:00)
[2016-10-24 04:08] LABS: AUTOMATED NEUTROPHIL # 11.7 TH/MM3 (1.8-7.7); BASOPHIL # 0.1 TH/MM3 (0-0.2); BASOPHIL % 0.4 % (0.0-2.0); EOSINOPHIL % 0.1 % (0.0-4.0); HEMATOCRIT 34.6 % (35.0-46.0); HEMO FLAGS DIFF FINAL; LYMPH % 15.2 % (9.0-44.0); LYMPHOCYTE # 2.3 TH/MM3 (1.0-4.8); MEAN CELL VOLUME 84.5 FL (80.0-100.0); MEAN CORPUSCULAR HEMOGLOBIN 27.8 PG (27.0-34.0); MEAN CORPUSCULAR HGB CONC 32.8 % (32.0-36.0); MONO % 6.1 % (0.0-8.0); NEUT % 78.2 % (16.0-70.0); PLATELET COUNT 138 TH/MM3 (150-450); RED BLOOD COUNT 4.09 MIL/MM3 (4.00-5.30); RED CELL DISTRIBUTION WIDTH 12.6 % (11.6-17.2); WHITE BLOOD COUNT 14.9 TH/MM3 (4.0-11.0)
[2016-10-24 04:11] LABS: INTERNATIONAL NORMALIZED RATIO 1.1 RATIO; PROTHROMBIN TIME - PATIENT 12.3 SEC (9.8-11.6)
[2016-10-24 04:32] LABS: ALT (GPT) 45 U/L (10-53); ANION GAP 9 MEQ/L (5-15); AST (GOT) 30 U/L (15-37); BICARBONATE 23.8 MEQ/L (21.0-32.0); BLOOD UREA NITROGEN 14 MG/DL (7-18); CHLORIDE 113 MEQ/L (98-107); GLOMERULAR FILTRATION RATE 67 ML/MIN (>89); MAGNESIUM 1.9 MG/DL (1.5-2.5); POTASSIUM 3.3 MEQ/L (3.5-5.1); SODIUM (NA) 146 MEQ/L (136-145)
[2016-10-24 04:34] LABS: ALKALINE PHOSPHATASE 112 U/L (45-117); TOTAL BILIRUBIN ADULT 0.8 MG/DL (0.2-1.0)
[2016-10-24] MEDS: ENOXAPARIN SODIUM 40 MG/0.4 ML SYRINGE SQ SCH (05:02)
[2016-10-24] MEDS: methylPREDNISolone SOD SUCC 40 MG/1 ML VIAL IV SCH ×2 (05:02→15:15)
--- NOTE | 2016-10-24 06:05 | RADRPT ---
EXAM DATE/TIME: 10/24/2016 05:34 [facility] COMPARISON: CHEST SINGLE AP, October 23, 2016, 1:08. INDICATIONS : Evaluate for pneumonia. MEDICAL HISTORY : Emphysema. Smoker. Atrial flutter SURGICAL HISTORY : None. ENCOUNTER: Subsequent ACUITY: 2 days PAIN SCORE: Non-responsive. LOCATION: Bilateral chest FINDINGS: Single portable frontal view the chest shows interval extubation and removal of the nasogastric tube. Bibasilar consolidation observed. No significant change on the right. The left is new somewhat linea r in nature. Tiny effusions bilaterally. Heart is mildly enlarged. CONCLUSION: 1. Unchanged right lower lobe infiltrate. 2. Development of linear consolidation within the left lung base. This may relate to atelectasis. 3. Tiny bilateral pleural effusions. Gian Zee Jr., MD on October 24, 2016 at 6:03 Board Certified Radiologist. This report was verified electronically.
[2016-10-24] MEDS: PIPERACIL-TAZO 3.375 GM PREMIX 50 ML IV SCH ×3 (06:30→18:00)
[2016-10-24] MEDS: ARTIFICIAL TEARS OPTH SOLN 15 ML BTL EACH EYE SCH ×3 (09:00→18:00)
[2016-10-24] MEDS: METOPROLOL TARTRATE 50 MG TAB PO SCH ×2 (10:05→21:00)
[2016-10-24] MEDS: FAMOTIDINE 20 MG/2 ML VIAL IV PUSH SCH ×2 (10:08→21:00)
[2016-10-24] MEDS: DOCUSATE SODIUM 100 MG/10 ML UDC G-TUBE SCH ×2 (10:08→21:00)
[2016-10-24] MEDS: SODIUM CHLORIDE 0.9% FLUSH 10 ML FLUSH SCH ×2 (10:09→21:01)
--- NOTE | 2016-10-24 11:21 | EKG ---
Date Performed: 10/23/2016 Time Performed: 16:11:52 PTAGE: 61 years EKG: ATRIAL FIBRILLATION ANTEROSEPTAL MYOCARDIAL INFARCTION , PROBABLY RECENT ACUTE MD PREVIOUS TRACING : 10/23/2016 00.04 DOCTOR: Raman Smith Interpretating Date/Time 10/24/2016 11:17:07
--- NOTE | 2016-10-24 12:02 | EC ---
Study Study Date:10/24/2016 STUDY CONCLUSIONS SUMMARY - Left ventricle: The cavity size was normal. Wall thickness was increased in a pattern of mild LVH. Systolic function was normal. The estimated ejection fraction was in the range of 55% to 60%. Wall motion was normal; there were no regional wall motion abnormalities. - Aortic valve: Valve area: 1.77cm^2 (Vmax). - Mitral valve: Mild regurgitation. If LV function is below 40, please consider prescribing an ACEI or ARB or document rationale for non-use. PROCEDURE DATA STUDY STATUS: Elective. Procedure: Transthoracic echocardiography. Image quality was good. Scanning was performed from the parasternal, apical, and subcostal acoustic windows. Study completion: The patient tolerated the procedure well. Transthoracic echocardiography. M-mode, complete 2D, complete spectral Doppler, and color Doppler. Height: Height: 67in. Weight: Weight: 145.7lb. Body mass index: BMI: 22.9kg/m^2. Body surface area: BSA: 1.77m^2. Patient status: Inpatient. CARDIAC ANATOMY LEFT VENTRICLE: The cavity size was normal. Wall thickness was increased in a pattern of mild LVH. Systolic function was normal. The estimated ejection fraction was in the range of 55% to 60%. Wall motion was normal; there were no regional wall motion abnormalities. AORTIC VALVE: Trileaflet; normal thickness leaflets. Doppler: Transvalvular velocity was within the normal range. There was no stenosis. No regurgitation. Valve area: 1.77cm^2 (Vmax). Indexed valve area: 1cm^2/m^2 (Vmax). Peak gradient: 19mm Hg (S). AORTA: Aortic root: The aortic root was normal in size. MITRAL VALVE: Structurally normal valve. Doppler: Transvalvular velocity was within the normal range. There was no evidence for stenosis. Mild regurgitation. Valve area by pressure half-time: 4.58cm^2. Indexed valve area by pressure half-time: 2.59cm^2/m^2. LEFT ATRIUM: The atrium was normal in size. RIGHT VENTRICLE: The cavity size was normal. Wall thickness was normal. PULMONIC VALVE: Doppler: Transvalvular velocity was within the normal range. There was no evidence for stenosis. No regurgitation. TRICUSPID VALVE: Structurally normal valve. Doppler: Transvalvular velocity was within the normal range. No regurgitation. Peak gradient: 22mm Hg (D). PULMONARY ARTERY: The main pulmonary artery was normal-sized. Systolic pressure was within the normal range. RIGHT ATRIUM: The atrium was normal in size. PERICARDIUM: There was no pericardial effusion. SYSTEMIC VEINS: Inferior vena cava: The vessel was normal in size. Patient weight: 145.7lb _Ejection fraction:_ 65-75% _Fractional shortening:_ 32% up to 5Kg 5-11.5Kg 11.6-22.9Kg 23-45Kg 45-57Kg Aortic Root 7-13 <17 13-22 17-27 17-27 LA diam 6-13 <23 24-38 33-47 37-40 RVID 10-17 7-15 7-15 7-18 8-17 LVIDd 12-22 <32 24-38 33-47 37-40 LVPW 2-4 3-6 5-7 6-8 7-8 IVS 2-4 3-6 5-7 6-8 7-8 BASIC MEASUREMENTS ADULT NORMAL Left ventricle LV internal dimension, ED, chordal 44.3 mm 43-52 level, PLAX LV internal dimension, ES, chordal 28.6 mm 23-38 level, PLAX Fractional shortening, chordal level, 35 % >29 PLAX LV posterior wall thickness, ED 16.7 mm IVS/LVPW ratio, ED 1.02 <1.3 Ventricular septum Septal thickness, ED 17 mm Aortic valve Leaflet separation 19 mm 15-26 Left atrium Anterior-posterior dimension 40 mm Anterior-posterior dimension index *2.26 cm/m^2 <2.2 Right ventricle RV internal dimension, ED, PLAX 29.1 mm 19-38 BASIC MEASUREMENTS ADULT NORMAL Aortic valve Leaflet separation 19 mm 15-26 Aorta Root diameter, ED 25 mm 20-37 Left atrium Anterior-posterior dimension, ES 40 mm 19-40 Anterior-posterior dimension index, ES *2.26 cm/m^2 <2.2 LA/aortic root ratio 1.6 DOPPLER MEASUREMENTS ADULT NORMAL Aortic valve Peak velocity, S 217 cm/s Peak gradient, S 19 mm Hg Valve area, Vmax 1.77 cm^2 Valve area index, Vmax 1 cm^2/m^2 Mitral valve Pressure half-time 48 ms Valve area, pressure half-time 4.58 cm^2 Valve area index, pressure half-time 2.59 cm^2/m^2 Tricuspid valve Peak gradient, D 22 mm Hg Maximal inflow velocity 236 cm/s Systemic veins Estimated CVP 10 mm Hg Pulmonic valve Peak velocity, S 128 cm/s LEGEND: Mean values are shown as u=mean value. Asterisk (*) pérez values outside specified normal range. Prepared and signed by Raman Smith [id number]
[2016-10-24] MEDS ORDERED: METOPROLOL TARTRATE 25 MG TAB PO SCH (15:56)
--- NOTE | 2016-10-24 15:58 | HHI.PR ---
Subjective Remarks Follow-up for atrial fibrillation Still on Cardizem drip at 10, and mild chest pain with coughing, not pressure- like, more short. Mild shortness of breath and coughing. No nausea or vomiting. Afebrile. Objective Vitals Vital Signs Date Time Temp Pulse Resp B/P Pulse Ox O2 Delivery O2 Flow Rate FiO2 10/24/16 12:00 69 10/24/16 12:00 98.4 69 19 121/56 96 10/24/16 10:00 98 10/24/16 09:16 95 Nasal Cannula 2.00 10/24/16 08:00 98 10/24/16 08:00 98.0 98 22 123/60 100 10/24/16 06:00 117 10/24/16 04:00 98.4 96 21 125/66 97 10/24/16 04:00 96 10/24/16 02:00 98 10/24/16 00:00 128 10/24/16 00:00 98.2 120 24 124/55 97 10/23/16 22:14 98 Nasal Cannula 2.00 10/23/16 22:00 121 10/23/16 20:00 121 10/23/16 20:00 98.0 121 16 136/64 100 10/23/16 18:00 102 10/23/16 16:00 100 10/23/16 16:00 97.8 100 28 131/61 100 Arterial Line I/O 10/23/16 10/23/16 10/23/16 10/24/16 10/24/16 10/24/16 07:00 15:00 23:00 07:00 15:00 23:00 Intake Total 1198 ml 820 ml 900 ml 1041 ml Output Total 1120 ml 675 ml 650 ml 450 ml 750 ml Balance -1120 ml 523 ml 170 ml 450 ml 291 ml Intake Oral 230 ml IV Total 1149 ml 820 ml 900 ml 811 ml Tube Feeding 49 ml Output Urine Total 1020 ml 675 ml 650 ml 450 ml 750 ml Stool Total 0 ml 0 ml Gastric Drainage Total 100 ml Result Diagram: 10/24/16 0350 10/24/16 0350 Objective Remarks Not in distress Nonicteric, pink conjunctiva No JVD Irregular rhythm, regular rate, no murmurs appreciated Occasional crackles and rhonchi Abdomen soft, nontender No edema Alert awake and oriented, no focal deficits. A/P Problem List: (1) Flash pulmonary edema ICD Code: J81.0 Status: Acute (2) Atrial flutter with rapid ventricular response ICD Code: I48.92 Status: Acute (3) Cocaine abuse ICD Code: F14.10 Status: Acute Assessment and Plan Hypoxic respiratory failure-status post extubation 10/23/16, on the second cannula, check BMP tomorrow. Atrial fibrillation-versus episodes of SVT, similar Cardizem drip, continue metoprolol, start Cardizem, Taper Cardizem intravenously. Echocardiogram showed ejection fraction of 55-60%. Consult cardiology Non-ST elevated myocardial infarction-EKG showed atrial flutter, versus atrial fibrillation with possible anterior wall injury. Troponin elevated, consult cardiology, start heparin. Left lower lobe pneumonia-could be from aspiration, start vancomycin and Zosyn, repeat lactic acid. Recheck CBC tomorrow. Chest x-ray shows left lower lobe consolidation and unchanged infiltrate from the right lower lobe, personally reviewed. Start DuoNeb's, check sputum culture Cocaine abuse-consult Hypokalemia-replaced, recheck tomorrow. Lactic acidosis-recheck SCDs for DVT prophylaxis Liam Chacon MD October 24, 2016 15:58
[2016-10-24] MEDS ORDERED: VANCOMYCIN INJ 1,250 MG in SODIUM CHLOR 0.9% 250 ML INJ 250 ML IV ONE (16:00)
[2016-10-24] MEDS ORDERED: HEPARIN-D5W INJ 250 ML IV SCH (16:00)
[2016-10-24] MEDS ORDERED: DILTIAZEM HCL 30 MG TAB PO SCH (16:00)
[2016-10-24] MEDS ORDERED: Vancomycin Consult Pharmacy 1 EA OTHER SCH (16:00)
[2016-10-24] MEDS ORDERED: FUROSEMIDE 20 MG/2 ML VIAL IV PUSH ONE (16:00)
[2016-10-24] MEDS ORDERED: POTASSIUM CHLORIDE 25 MEQ EFFERVESCENT TAB PO ONE (16:00)
[2016-10-24 17:23] LABS: HEMATOCRIT 35.9 % (35.0-46.0); MEAN CELL VOLUME 86.3 FL (80.0-100.0); MEAN CORPUSCULAR HEMOGLOBIN 27.9 PG (27.0-34.0); MEAN CORPUSCULAR HGB CONC 32.3 % (32.0-36.0); PLATELET COUNT 144 TH/MM3 (150-450); RED BLOOD COUNT 4.16 MIL/MM3 (4.00-5.30); RED CELL DISTRIBUTION WIDTH 12.8 % (11.6-17.2); REVIEW FLAG FINAL; WHITE BLOOD COUNT 13.9 TH/MM3 (4.0-11.0)
[2016-10-24 17:32] LABS: APTT (PATIENT) 23.5 SEC (24.3-30.1); PROTHROMBIN TIME - PATIENT 11.4 SEC (9.8-11.6)
[2016-10-24] MEDS ORDERED: HEPARIN SODIUM - IV 10,000 UNITS/10 ML VIAL IV PRN ×2 (22:00)
[2016-10-24 23:41] LABS: APTT (PATIENT) 27.8 SEC (24.3-30.1)
[2016-10-25] VITALS (18 sets, daily range): BP systolic 113–156; BP diastolic 63–101; PULSE 72–132; RESP 17–24; TEMP 97.7–98.5; O2SAT 96–99
[2016-10-25] MEDS: PIPERACIL-TAZO 3.375 GM PREMIX 50 ML IV SCH ×4 (00:25→16:52)
[2016-10-25] MEDS: LORazepam 2 MG/ML VIAL IV PRN (01:41)
[2016-10-25] MEDS ORDERED: PHARMACY ORDERED LAB ONE (02:45)
[2016-10-25] MEDS: VANCOMYCIN 1,000 MG/NS 250 ML IV SCH ×4 (03:03→14:31)
[2016-10-25] MEDS: methylPREDNISolone SOD SUCC 40 MG/1 ML VIAL IV SCH ×2 (03:03→16:00)
[2016-10-25] MEDS: SODIUM CHLOR 0.9% 1000 ML INJ 1,000 ML IV SCH (03:25)
[2016-10-25] MEDS: RESP: ALBUTEROL 2.5 MG/IPRATROPIUM 0.5 MG NEB (SCH) INH ×4 (03:52→20:32)
[2016-10-25] MEDS: CHLORHEXIDINE GLUCONATE 2 % 1 PACK (2 CLOTHS) TOP SCH (04:00)
[2016-10-25 04:16] LABS: AUTOMATED NEUTROPHIL # 11.2 TH/MM3 (1.8-7.7); BASOPHIL % 0.4 % (0.0-2.0); HEMATOCRIT 32.6 % (35.0-46.0); HEMO FLAGS DIFF FINAL; LYMPH % 10.5 % (9.0-44.0); LYMPHOCYTE # 1.5 TH/MM3 (1.0-4.8); MEAN CELL VOLUME 84.8 FL (80.0-100.0); MEAN CORPUSCULAR HEMOGLOBIN 27.8 PG (27.0-34.0); MEAN CORPUSCULAR HGB CONC 32.7 % (32.0-36.0); MONO % 7.7 % (0.0-8.0); NEUT % 81.4 % (16.0-70.0); PLATELET COUNT 134 TH/MM3 (150-450); RED BLOOD COUNT 3.85 MIL/MM3 (4.00-5.30); RED CELL DISTRIBUTION WIDTH 12.7 % (11.6-17.2); WHITE BLOOD COUNT 13.8 TH/MM3 (4.0-11.0)
[2016-10-25 04:34] LABS: APTT (PATIENT) 38.1 SEC (24.3-30.1)
[2016-10-25 04:35] LABS: APTT (PATIENT) 37.1 SEC (24.3-30.1)
[2016-10-25 04:44] LABS: BICARBONATE 25.7 MEQ/L (21.0-32.0); POTASSIUM 3.5 MEQ/L (3.5-5.1)
[2016-10-25] MEDS: DILTIAZEM INJ 125 MG in SODIUM CHLORIDE 0.9% INJ 100 ML IV SCH ×2 (06:10→22:14)
--- NOTE | 2016-10-25 06:24 | MB ---
cc: RYLAND RUIZ DATE OF CONSULTATION 10/24/2016 DATE OF 1955 REASON FOR CONSULTATION Atrial fibrillation with RVR/elevated troponins. HISTORY OF PRESENT ILLNESS 61-year-old female with past medical history significant for cocaine abuse, admitted in the hospital with respiratory distress, subsequently intubated. Also found to atrial fibrillation/atrial flutter with rapid ventricular response. The patient had unsuccessful cardioversions and the heart rate was controlled eventually with a Cardizem drip. Cardiology has been consulted for A -fib management and elevated troponins. Currently she denies chest pain. She has been extubated. She reports mild shortness of breath and productive cough. No nausea, no vomiting, no fevers. REVIEW OF SYSTEMS Negative except for what is mentioned in the HPI. HOME MEDICATIONS None. PAST MEDICAL HISTORY None. SOCIAL HISTORY Smoker. ALLERGIES CODEINE. DOXYCYCLINE. MORPHINE. PHYSICAL EXAMINATION VITAL SIGNS: Temperature 98, respiratory rate 19, pulse 67, blood pressure 150/66, O2 sat 98% on 2 liters nasal cannula. GENERAL: She is awake, alert,oriented x 3, coughing, productive cough NECK: No JVD, no carotid bruits. HEART: Regular rate and rhythm. No murmurs, rubs or gallops. LUNGS: Poor inspiratory effort. No wheezes, no rhonchi, no rales. ABDOMEN: Soft, nontender, nondistended. Positive bowel sounds. EXTREMITIES: No cyanosis or edema. Pulses throughout. DATA CBC: White count 13.9, hemoglobin 11, hematocrit 35, platelet count 144. INR 1.0. Chemistries: Sodium 146, potassium 3.3 trending up from 3.1. BUN 14, creatinine 1.02. Troponin 0.03 and 1.5. Urinalysis: Remarkable for some haziness, positive for ketones, glucose and moderate occult blood. Toxicology positive for cocaine. CHEST X-RAY There is a right lower lobe infiltrate and small bilateral pleural effusions. TELEMETRY Atrial fibrillation with adequate ventricular response. ECHOCARDIOGRAM Normal LV systolic function with estimated ejection fraction of 60% and no regional wall motion abnormalities. ASSESSMENT AND PLAN 61-year-old female with no significant past medical history other than cocaine abuse, admitted with an acute respiratory failure status post extubation and also atrial fibrillation with RVR. She remains afebrile, hemodynamically stable and she is extubated now with no chest pain. Reports some mild shortness of breath an productive cough, being treated for PNA. Troponin elevation was likely secondary to the unsuccessful cardioversions done in the ED. She does have cardiac risk factors that include age, urinalysis we can see some protein in the urine suggestive of some kidney disease and smoking. Currently her atrial fibrillation is better controlled with a Cardizem drip at a rate of 10. She is also on a p.o. regimen of metoprolol. Her CHADS2 score is at least 2 for which anticoagulation is strongly recommended. No invasive cardiac workup recommended at this time. RECOMMENDATIONS 1. Optimize beta blockers, increase Lopressor to 100 mg p.o. b.i.d. as tolerated by HR and BP. Wean Cardizem drip off. 2. Start oral anticoagulation with either Coumadin or one of the new anticoagulants given her CHADS2 score. 3. Avoid electrolyte abnormalities. 4. Smoking cessation. 5. Cardiac risk reduction. 6. The patient should follow with a dental laboratory supervisor when discharged. Thank you for the opportunity to participate in the care of this patient. MD KARRIE Gonsalez/RAMONA /6:34 PM /6:10 AM [email or web address]
[2016-10-25 07:20] LABS: APTT (PATIENT) 58.4 SEC (24.3-30.1)
--- NOTE | 2016-10-25 07:44 | EKG ---
Date Performed: 10/23/2016 Time Performed: 23:29:50 PTAGE: 61 years EKG: Atrial flutter with rapid ventricular response. Possible anteroseptal infarct - age undeter mined Inferior/lateral ST-T changes may be due to myocardial ischemia Abnormal ECG PREVIOUS TRACING : 10/23/2016 16.11 DOCTOR: Raman Smith Interpretating Date/Time 10/25/2016 07:43:22
[2016-10-25] MEDS: DOCUSATE SODIUM 100 MG/10 ML UDC G-TUBE SCH ×2 (09:02→20:54)
[2016-10-25] MEDS: METOPROLOL TARTRATE 50 MG TAB PO SCH (09:02)
[2016-10-25] MEDS: FAMOTIDINE 20 MG/2 ML VIAL IV PUSH SCH (09:02)
[2016-10-25] MEDS ORDERED: METOPROLOL SUCCINATE 50 MG EXTENDED RELEASE TAB PO ONE (10:00)
[2016-10-25] MEDS ORDERED: ACETAMINOPHEN/HYDROcodone 325 MG/5 MG TAB PO PRN (10:15)
[2016-10-25] MEDS: RIVAROXABAN 20 MG TAB PO SCH (10:55)
[2016-10-25] MEDS: ARTIFICIAL TEARS OPTH SOLN 15 ML BTL EACH EYE SCH ×2 (13:00→16:51)
[2016-10-25 13:02] LABS: APTT (PATIENT) 37.9 SEC (24.3-30.1)
[2016-10-25] MEDS: SODIUM CHLORIDE 0.9% FLUSH 10 ML FLUSH SCH ×2 (13:48→20:54)
--- NOTE | 2016-10-25 16:45 | HHI.PR ---
Subjective Remarks Follow-up for atrial fibrillation. Seen by cardiology, heart rate still mildly tachycardic, on Cardizem 5. No nausea, vomiting, chest pain or palpitations. Shortness of breath is better. Objective Vitals Vital Signs Date Time Temp Pulse Resp B/P Pulse Ox O2 Delivery O2 Flow Rate FiO2 10/25/16 13:45 132 10/25/16 12:16 22 10/25/16 12:00 97.9 97 19 143/67 99 10/25/16 10:00 96 10/25/16 09:37 98 Nasal Cannula 2.00 10/25/16 08:48 98 Nasal Cannula 2.00 10/25/16 08:00 98.0 113 18 156/99 96 10/25/16 06:00 96 10/25/16 04:00 72 10/25/16 04:00 97.7 72 24 131/63 99 10/25/16 02:00 83 10/25/16 00:00 83 10/25/16 00:00 97.7 83 17 113/69 99 10/24/16 22:00 70 10/24/16 21:10 95 Nasal Cannula 2.00 10/24/16 20:00 98.3 80 24 139/90 96 10/24/16 20:00 80 10/24/16 18:00 90 I/O 10/24/16 10/24/16 10/24/16 10/25/16 10/25/16 10/25/16 07:00 15:00 23:00 07:00 15:00 23:00 Intake Total 900 ml 1041 ml 1160 ml 951 ml Output Total 450 ml 750 ml 1451 ml 1000 ml 1 ml Balance 450 ml 291 ml -291 ml -49 ml -1 ml Intake Oral 230 ml 500 ml 100 ml IV Total 900 ml 811 ml 660 ml 851 ml Output Urine Total 450 ml 750 ml 1450 ml 1000 ml Stool Total 0 ml 0 ml 1 ml 0 ml 1 ml Result Diagram: 10/25/16 0349 10/25/16 0349 Objective Remarks Not in distress Nonicteric, pink conjunctiva No JVD Irregular rhythm, regular rate, no murmurs appreciated Breath sounds are better, crackles resolving. No wheezing Abdomen soft, nontender No edema Alert awake and oriented, no focal deficits. A/P Problem List: (1) Flash pulmonary edema ICD Code: J81.0 Status: Acute (2) Atrial flutter with rapid ventricular response ICD Code: I48.92 Status: Acute (3) Cocaine abuse ICD Code: F14.10 Status: Acute Assessment and Plan Hypoxic respiratory failure-status post extubation 10/23/16, on the second cannula, BMP stable. Decrease steroids. Atrial fibrillation-versus episodes of SVT, titrate Cardizem drip, increase metoprolol per cardiology. Start anticoagulation per cardiology, will start Xarelto. Echocardiogram showed ejection fraction of 55-60%. Cardiology following. Non-ST elevated myocardial infarction-EKG showed atrial flutter, versus atrial fibrillation with possible anterior wall injury. Troponin elevated, cardiology following, no further workup per cardiology, stop heparin, start Xarelto. Left lower lobe pneumonia-could be from aspiration, continue vancomycin and Zosyn, lactic acidosis resolved, leukocytosis at present but better. Chest x- ray shows left lower lobe consolidation and unchanged infiltrate from the right lower lobe, personally reviewed. Continue duo nebs, follow-up sputum culture, decrease steroids. Cocaine abuse- counseled. Hypokalemia-replaced Lactic acidosis- resolved SCDs for DVT prophylaxis Transfer to Liam Chaudhary MD October 25, 2016 16:45
[2016-10-25] MEDS: METOPROLOL TARTRATE 100 MG TAB PO SCH (20:53)
[2016-10-25] MEDS: LORazepam 1 MG TAB PO PRN (20:53)
[2016-10-26] VITALS (12 sets, daily range): BP systolic 134–151; BP diastolic 68–78; PULSE 77–135; RESP 16–20; TEMP 97–98.2; O2SAT 93–98
[2016-10-26] MEDS: PIPERACIL-TAZO 3.375 GM PREMIX 50 ML IV SCH ×4 (00:03→17:28)
[2016-10-26] MEDS: VANCOMYCIN 1,000 MG/NS 250 ML IV SCH ×4 (03:10→14:35)
[2016-10-26] MEDS: LORazepam 1 MG TAB PO PRN (03:11)
[2016-10-26] MEDS: RESP: ALBUTEROL 2.5 MG/IPRATROPIUM 0.5 MG NEB (SCH) INH ×4 (03:38→21:11)
[2016-10-26] MEDS: CHLORHEXIDINE GLUCONATE 2 % 1 PACK (2 CLOTHS) TOP SCH (03:42)
[2016-10-26 05:43] LABS: BICARBONATE 29.9 MEQ/L (21.0-32.0); POTASSIUM 3.1 MEQ/L (3.5-5.1)
[2016-10-26] MEDS: SODIUM CHLORIDE 0.9% FLUSH 10 ML FLUSH SCH ×2 (09:00→20:50)
[2016-10-26] MEDS: METOPROLOL TARTRATE 100 MG TAB PO SCH ×2 (09:08→20:50)
[2016-10-26] MEDS: RIVAROXABAN 20 MG TAB PO SCH (09:08)
[2016-10-26] MEDS: DOCUSATE SODIUM 100 MG/10 ML UDC G-TUBE SCH ×2 (09:08→20:50)
[2016-10-26] MEDS: methylPREDNISolone SOD SUCC 40 MG/1 ML VIAL IV SCH (09:09)
[2016-10-26] MEDS: ARTIFICIAL TEARS OPTH SOLN 15 ML BTL EACH EYE SCH ×3 (09:09→16:21)
[2016-10-26] MEDS ORDERED: POTASSIUM CHLORIDE 25 MEQ EFFERVESCENT TAB PO ONE (12:15)
--- NOTE | 2016-10-26 14:29 | HHI.PR ---
Subjective Remarks Follow up atrial fibrillation. Patient seen and examined. Patient sitting up in chair lethargic and sleepy today. She states she did not get rest overnight. Spoke with RN, apparently she had an episode of tachycardia and the Cardizem drip was restarted a 5 mg/hr. From the conveyor monitor patient has stayed around a heart rate of 80's since the episode. Does state that she occasionally get short of breath with ambulation. Denies nausea, vomiting, diarrhea or chest pain. Objective Vitals Vital Signs Date Time Temp Pulse Resp B/P Pulse Ox O2 Delivery O2 Flow Rate FiO2 10/26/16 09:39 98 Nasal Cannula 2.00 10/26/16 09:00 77 10/26/16 08:06 97.9 78 16 151/75 95 10/26/16 08:00 Nasal Cannula 2.00 10/26/16 06:06 142/70 10/26/16 04:00 97.4 77 18 93 10/26/16 00:00 98.2 120 20 134/78 95 10/25/16 23:00 150/65 10/25/16 22:45 153/70 10/25/16 22:21 153/80 10/25/16 20:34 97 Nasal Cannula 2.00 10/25/16 20:00 Nasal Cannula 2.00 10/25/16 20:00 98.3 119 18 128/72 97 10/25/16 19:47 122 10/25/16 16:00 98.0 115 22 153/70 96 10/25/16 16:00 Nasal Cannula 2.00 I/O 10/25/16 10/25/16 10/25/16 10/26/16 10/26/16 10/26/16 07:00 15:00 23:00 07:00 15:00 23:00 Intake Total 951 ml 0 ml 240 ml Output Total 1000 ml 1 ml 800 ml 1750 ml Balance -49 ml -1 ml -800 ml -1510 ml Intake Oral 100 ml 0 ml 240 ml IV Total 851 ml Output Urine Total 1000 ml 800 ml 1750 ml Stool Total 0 ml 1 ml # Bowel Movements 0 0 Result Diagram: 10/25/16 0349 10/26/16 0433 Imaging Last Impressions Chest X-Ray 10/24/16 0000 Signed Impressions: Service Date/Time: Monday, October 24, 2016 05:34 - CONCLUSION: 1. Unchanged right lower lobe infiltrate. 2. Development of linear consolidation within the left lung base. This may relate to atelectasis. 3. Tiny bilateral pleural effusions. Gian Zee Jr., MD Objective Remarks GENERAL: Well-nourished, well-developed patient sitting in chair on NC 2 L, and lethargic. SKIN: Warm and dry. No rash. HEAD: Normocephalic. Atraumatic. Pupils equal and round. No scleral icterus. No injection or drainage. No nasal bleeding or discharge. Mucous membranes pink and moist. Neck Supple. Trachea midline. CARDIOVASCULAR: Regular rate and rhythm. S1, S2 noted. No murmur appreciated. RESPIRATORY: No accessory muscle use. Diminished breath sounds throughout. Breath sounds equal bilaterally. GASTROINTESTINAL: Abdomen soft, non-tender, nondistended. Normoactive bowel sounds x4. MUSCULOSKELETAL: No obvious deformities. Extremities without clubbing, cyanosis , or edema. NEUROLOGICAL: Awake and alert. No obvious cranial nerve deficits. Motor grossly within normal limits. Normal speech. PSYCHIATRIC: Appropriate mood and affect; insight and judgment normal. Urinary Catheter: No Vascular Central Line Catheter: No A/P Problem List: (1) Flash pulmonary edema ICD Code: J81.0 Status: Acute (2) Atrial flutter with rapid ventricular response ICD Code: I48.92 Status: Acute (3) Cocaine abuse ICD Code: F14.10 Status: Acute Assessment and Plan Ms. Hernández is a 61-year-old female with a known history of hypertension and COPD who presented to the ED in acute respiratory failure and hypotension in A fib RVR with suspicion of cocaine effect. Patient is status post intubation. Hypoxic respiratory failure, status post extubation 10/23/16 likely secondary to cocaine use or COPD exacerbation - Patient currently on 2L NC, with O2 sats 98%. - Continue solumedrol 40 mg IV daily. - Continue Duonebs scheduled and PRN. Atrial fibrillation versus episodes of SVT - DC Cardizem drip. Start Cardizem 30 mg PO Q6hr. Monitor HR. Continue metoprolol. - Continue Xarelto. - Echocardiogram showed ejection fraction of 55-60%. Cardiology following. Non-ST elevated myocardial infarction - EKG showed atrial flutter, versus atrial fibrillation with possible anterior wall injury. - Troponin elevated, cardiology following, no further workup per cardiology, stopped heparin. Continue Xarelto. Left lower lobe pneumonia: Possibly secondary to aspiration - Continue vancomycin and Zosyn - Lactic acidosis resolved - Leukocytosis 16.8 --> 14.9 --> 13.9 --> 13.9. CBC in am. - Chest x-ray shows left lower lobe consolidation and unchanged infiltrate from the right lower lobe, personally reviewed. Continue duo nebs, follow-up sputum culture, decrease steroids. Cocaine abuse- counseled. Hypokalemia: Status post replacement. K 3.1 today 10/26. KCL eff 50 meq PO x 1 now. Recheck BMP in am. Lactic acidosis- resolved DVT prophylaxis: SCDs. Written by Meghana Rudolph, acting as scribe for Dr. Chacon on 10/26/16 at 14: 00. This note was transcribed by scribe Meghana Rudolph. I, Dr. Liam Chacon personally performed the history, physical exam, and medical decision making; and confirmed the accuracy of the information in the transcribed note. Authenticated by Dr. Liam Chacon on 10/26/16 at 14:00. Meghana Rudolhp October 26, 2016 14:29 Liam Chacon MD November 01, 2016 10:06
[2016-10-26] MEDS: DILTIAZEM HCL 30 MG TAB PO SCH ×2 (14:35→20:50)
[2016-10-27] VITALS: BP 134/82; PULSE 88; RESP 19; TEMP 98.4; O2SAT 94
[2016-10-27] MEDS: PIPERACIL-TAZO 3.375 GM PREMIX 50 ML IV SCH ×2 (00:08→05:03)
[2016-10-27] MEDS: DILTIAZEM HCL 30 MG TAB PO SCH ×2 (01:23→08:20)
[2016-10-27] MEDS: VANCOMYCIN 1,000 MG/NS 250 ML IV SCH ×2 (02:42)
[2016-10-27] MEDS ORDERED: PHARMACY ORDERED LAB ONE (02:45)
[2016-10-27 04:00] VITALS: BP 128/60; PULSE 85; RESP 19; TEMP 98.5; O2SAT 94
[2016-10-27] MEDS: CHLORHEXIDINE GLUCONATE 2 % 1 PACK (2 CLOTHS) TOP SCH (04:00)
[2016-10-27 06:25] LABS: HEMATOCRIT 36.9 % (35.0-46.0); MEAN CELL VOLUME 84.8 FL (80.0-100.0); MEAN CORPUSCULAR HEMOGLOBIN 27.5 PG (27.0-34.0); MEAN CORPUSCULAR HGB CONC 32.4 % (32.0-36.0); PLATELET COUNT 161 TH/MM3 (150-450); RED BLOOD COUNT 4.35 MIL/MM3 (4.00-5.30); RED CELL DISTRIBUTION WIDTH 12.2 % (11.6-17.2); REVIEW FLAG FINAL
[2016-10-27 07:01] LABS: BICARBONATE 28.9 MEQ/L (21.0-32.0); POTASSIUM 3.5 MEQ/L (3.5-5.1)
[2016-10-27 08:00] VITALS: BP 145/74; PULSE 102; RESP 20; TEMP 98; O2SAT 96
[2016-10-27] MEDS: METOPROLOL TARTRATE 100 MG TAB PO SCH (08:20)
[2016-10-27] MEDS: DOCUSATE SODIUM 100 MG/10 ML UDC G-TUBE SCH (08:20)
[2016-10-27] MEDS: RIVAROXABAN 20 MG TAB PO SCH (08:20)
[2016-10-27] MEDS: ARTIFICIAL TEARS OPTH SOLN 15 ML BTL EACH EYE SCH (08:21)
[2016-10-27] MEDS: methylPREDNISolone SOD SUCC 40 MG/1 ML VIAL IV SCH (08:21)
[2016-10-27] MEDS: SODIUM CHLORIDE 0.9% FLUSH 10 ML FLUSH SCH (08:22)
[2016-10-27] MEDS ORDERED: DILT31TA PO (08:26)
[2016-10-27] MEDS ORDERED: AUGM500T7 PO (08:26)
[2016-10-27] MEDS ORDERED: PRED20 PO (08:28)
[2016-10-27] MEDS ORDERED: XARE20TA PO (08:32)
[2016-10-27] MEDS ORDERED: METO-338 PO (08:32)
[2016-10-27 09:27] VITALS: PULSE 103
--- NOTE | 2016-10-27 17:49 | HHI.DS ---
Discharge Summary Admission Date October 23, 2016 at 02:27 Discharge Date: October 27, 2016 Admitting Diagnosis Respiratory failure, SVT (1) Flash pulmonary edema ICD Code: J81.0 Diagnosis: Principal (2) Atrial flutter with rapid ventricular response ICD Code: I48.92 Diagnosis: Principal (3) Cocaine abuse ICD Code: F14.10 Diagnosis: Secondary Procedures intubation and extubation Brief History - From Admission Mrs. Hernández is a 61 year old female. She came in in respiratory failure and hypotension with heart rates over 200 from A-flutter and RVR. She was cocaine positive. She was intubated and her cardiac arrhythmia was treated. Through time she has improved with normalization of her A-flutter RVR. Blood pressures have also improved. She is extubated today. History could not be obtained previously due to her condition. We discussed her cocaine use and she denies that she had used any within 4 days of her onset of respiratory failure. 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 Other medical conditions are HTN and COPD. She admits to cocaine use intermittantly and also reports occasional smoking. She has used alcohol in the past and denies that this is a regular habit for her other than having some alcohol the evening of admit. No other complaints. CBC/BMP: 10/27/16 0534 10/27/16 0534 Significant Findings Laboratory Tests Test 10/25/16 10/25/16 10/25/16 10/25/16 02:50 03:49 06:35 12:40 Vancomycin Level Trough 3.8 MCG/ML (5.0-10.0) White Blood Count 13.8 TH/MM3 (4.0-11.0) Red Blood Count 3.85 MIL/MM3 (4.00-5.30) Hemoglobin 10.7 GM/DL (11.6-15.3) Hematocrit 32.6 % (35.0-46.0) Platelet Count 134 TH/MM3 (150-450) Neutrophils (%) (Auto) 81.4 % (16.0-70.0) Neutrophils # (Auto) 11.2 TH/MM3 (1.8-7.7) Monocytes # (Auto) 1.1 TH/MM3 (0-0.9) Activated Partial 38.1 SEC 58.4 SEC 37.9 SEC Thromboplast Time (24.3-30.1) (24.3-30.1) (24.3-30.1) Chloride Level 111 MEQ/L (98-107) Estimat Glomerular Filtration 80 ML/MIN (>89) Rate Random Glucose 135 MG/DL (74-106) Test 10/26/16 10/27/16 10/27/16 04:33 02:40 05:34 Potassium Level 3.1 MEQ/L (3.5-5.1) Estimat Glomerular Filtration 76 ML/MIN (>89) 75 ML/MIN (>89) Rate Random Glucose 109 MG/DL 133 MG/DL (74-106) (74-106) Vancomycin Level Trough 12.1 MCG/ML (5.0-10.0) White Blood Count 15.0 TH/MM3 (4.0-11.0) Blood Urea Nitrogen 20 MG/DL (7-18) Imaging Last Impressions Chest X-Ray 10/24/16 0000 Signed Impressions: Service Date/Time: Monday, October 24, 2016 05:34 - CONCLUSION: 1. Unchanged right lower lobe infiltrate. 2. Development of linear consolidation within the left lung base. This may relate to atelectasis. 3. Tiny bilateral pleural effusions. Gian Zee Jr., MD PE at Discharge GENERAL: Well-nourished, well-developed patient lying in bed comfortably in no apparent distress. SKIN: Warm and dry. No rash. HEAD: Normocephalic. Atraumatic. Pupils equal and round. No scleral icterus. No injection or drainage. No nasal bleeding or discharge. Mucous membranes pink and moist. Neck Supple. Trachea midline. CARDIOVASCULAR: Atrial fibrillation, controlled. No murmur appreciated. RESPIRATORY: No accessory muscle use. Diminished breath sounds throughout. Breath sounds equal bilaterally. GASTROINTESTINAL: Abdomen soft, non-tender, nondistended. Normoactive bowel sounds x4. MUSCULOSKELETAL: No obvious deformities. Extremities without clubbing, cyanosis , or edema. NEUROLOGICAL: Awake and alert. No obvious cranial nerve deficits. Motor grossly within normal limits. Normal speech. PSYCHIATRIC: Appropriate mood and affect; insight and judgment normal. Pt update on day of discharge Patient seen and examined. Lying in bed no distress, alert and oriented. Denies any further shortness of breath, fever, chills, cough, nausea or vomiting. Tolerating PO intake. Has been out of bed ambulating. Plan to discharge home today. Hospital Course Ms. Hernández is a 61-year-old female with a known history of hypertension and COPD who presented to the ED in acute respiratory failure and hypotension in A fib RVR with suspicion of cocaine effect. Patient is status post intubation. Hypoxic respiratory failure, status post extubation 10/23/16 likely secondary to cocaine use or COPD exacerbation. Patient was given supplemental O2, steroids and Duonebs. Atrial fibrillation versus episodes of SVT while hospitalized, started on cardizem drip then eventually weaned off to Cardizem 30 mg PO Q6hr and continued on metoprolol. Echocardiogram showed ejection fraction of 55-60%. Continued Xarelto. Left lower lobe pneumonia: Possibly secondary to aspiration started vancomycin and Zosyn IV. Leukocytosis initially 16.8 and trending down. Initially lactic acidosis present but resolved by discharge. Chest x-ray shows left lower lobe consolidation and infiltrate from the right lower lobe. Patient encouraged to follow up with cardiology in 2 weeks and PCP in 1 week. Patient understands and agreeable. Case management to assist with patient obtaining Xarelto assistance due to lack of insurance. Pt Condition on Discharge: Good Discharge Disposition: Discharge Home Discharge Time: > 30 minutes Discharge Instructions DIET: Follow Instructions for: Heart Healthy Diet Activities you can perform: Regular-No Restrictions Follow up Referrals: Cardiology - 2 Weeks PCP Follow-up - 1 Week New Medications: Amoxicillin-Clavulanate (Augmentin) 500-125 mg Tab 500 MG PO Q8H Infection #12 Ref 0 TAB Prednisone (Prednisone) 20 Mg Tab 20 MG PO DAILY copd exacerbation #5 Ref 0 TAB Diltiazem (Cardizem) 30 Mg Tab 30 MG PO Q6H arrythmia #120 TAB Metoprolol Tartrate (Lopressor) 100 Mg Tab 100 MG PO Q12HR afib #60 TAB Rivaroxaban (Xarelto) 20 Mg Tab 20 MG PO DAILY afib #30 TAB Meghana Rudolph October 27, 2016 17:49 Liam Chacon MD November 01, 2016 10:19
== END 2016-10-27 10:40 | disposition home or self-care (01) | DRG 208 ==
LOC: NEPE 23:00 → NEDA 10-23 02:27 → N03B 10-23 06:12 → N04A 10-25 13:35
PROVIDERS: ADMIT Hospitalist; ATTEND Hospitalist
PROC: 0BH17EZ Insertion of Endotracheal Airway into Trachea, Via Natural or Artificial Opening (ICD-10-PCS; principal; 2016-10-23)
PROC: 5A1945Z Respiratory Ventilation, 24-96 Consecutive Hours (ICD-10-PCS; 2016-10-23)
DX: J96.01 Acute respiratory failure with hypoxia (principal); R57.8 Other shock; J18.9 Pneumonia, unspecified organism; I95.9 Hypotension, unspecified; I11.0 Hypertensive heart disease with heart failure; E87.2 Acidosis; J44.9 Chronic obstructive pulmonary disease, unspecified; I50.9 Heart failure, unspecified; I47.1 Supraventricular tachycardia; I48.92 Unspecified atrial flutter; I48.91 Unspecified atrial fibrillation; E87.6 Hypokalemia; F14.129 Cocaine abuse with intoxication, unspecified; T40.5X1A Poisoning by cocaine, accidental (unintentional), initial encounter; F17.200 Nicotine dependence, unspecified, uncomplicated; Z79.01 Long term (current) use of anticoagulants
CPT/HCPCS: 31500; 36620; 71010; 80048; 80053; 80202; 80307; 81001; 82550; 82805; 82948; 83605; 83735; 83880; 84100; 84132; 84484; 85007; 85025; 85027; 85379; 85610; 85730; 87040; 87070; 87086; 87205; 87449; 87641; 92960; 93005; 93306; 94003; 94640; 94664; 96365; 96366; 96368; 96375; 96376; 99152; 99153; J0153; J0330; J0456; J0692; J1170; J1644; J1650; J1940; J2060; J2270; J2543; J2920; J3370; J3480; J7030; J7050